=== PATIENT | male | born 1995 | race Hispanic/Latino ===

== ENCOUNTER 2018-03-17 18:58 | Inpatient (IN) | payer BC ==
[2018-03-17 18:59] VITALS: BMI 66.9
[2018-03-17] MEDS ORDERED: Morphine 4 mg/ml ISec IVP STA (20:13)
[2018-03-17] MEDS ORDERED: Sodium Chloride 0.9% 1,000 ML IV STA (20:13)
[2018-03-17] MEDS ORDERED: Iohexol 240 (50 ml) ONE (20:16)
[2018-03-17 20:37] LABS: BASO # 0.02 K/mm3 (0.0-2.0); BASO % 0.1 % (0.0-3.0); EOS # 0.5 (0.0-0.7); EOS % 3.1 % (1.5-5.0); GRAN # 9.52 (1.4-6.5); GRAN % 57.3 % (50.0-68.0); HEMOGLOBIN 14.6 g/dL (14.0-18.0); LYMPH # 5.3 (1.2-3.4); LYMPH % 31.7 % (22.0-35.0); MEAN CELL VOLUME 84.2 fl (80.0-105.0); MEAN CORPUSCULAR HEMOGLOBIN 28.5 pg (25.0-35.0); MEAN CORPUSCULAR HGB CONC 33.9 g/dl (31.0-37.0); MEAN PLATELET VOLUME 8.8 fl (7.0-11.0); MONO # 1.3 (0.1-0.6); MONO % 7.8 % (1.0-6.0); RBC 5.12 10^6/uL (3.5-6.1); RED CELL DISTRIBUTION WIDTH 12.7 % (11.5-14.5); WHITE BLOOD COUNT 16.6 10^3/ul (4.5-11.0)
--- NOTE | 2018-03-17 20:49 | ED PDOC ---
Arrival/HPI - General Chief Complaint: Male Genitourinary Time Seen by Provider: 03/17/18 19:50 Historian: Patient - History of Present Illness Narrative History of Present Illness (Text): 03/17/18 20:46 Navin Hammond is a 23 year old male who presents to the emergency department complaining of rectal pain for the past 6 weeks. Patient states that he visited an Urgent care center 1 week ago and was prescribed Miralax and has used everything he can over the counter including hydrocortisone creams to no relief. Patient comes to emergency department for swelling and pain to his rectal area. Patient has no other complaints at this time. PMD: Dr. Niels Groves Time/Duration: > month Symptom Onset: Gradual Symptom Course: Unchanged Activities at Onset: Light Context: Home Past Medical History - Provider Review Nursing Documentation Reviewed: Yes - Past Medical History Past Medical History: No Previous - Psychiatric Hx Depression: No Hx Emotional Abuse: No Hx Physical Abuse: No Hx Substance Use: No - Past Surgical History Past Surgical History: No Previous - Anesthesia Hx Anesthesia: No - Suicidal Assessment Feels Threatened In Home Enviroment: No Family/Social History - Physician Review Nursing Documentation Reviewed: Yes Family/Social History: No Known Family HX Smoking Status: Current Some Days Smoker Hx Alcohol Use: Yes Frequency of alcohol use: Socially Hx Substance Use: No Hx Substance Use Treatment: No Allergies/Home Meds Allergies/Adverse Reactions: Allergies peanut Allergy (Verified 03/17/18 20:07) RASH tree nut Allergy (Verified 03/17/18 20:07) RASH Review of Systems - Physician Review All systems were reviewed & negative as marked: Yes - Review of Systems Constitutional: absent: Fevers, Night Sweats Eyes: absent: Vision Changes ENT: absent: Hearing Changes Respiratory: absent: SOB, Cough Cardiovascular: absent: Chest Pain Gastrointestinal: absent: Abdominal Pain Genitourinary Male: Other (Rectal pain) Musculoskeletal: absent: Arthralgias Skin: absent: Rash, Pruritis Neurological: absent: Headache, Dizziness Endocrine: absent: Diaphoresis Hemo/Lymphatic: absent: Adenopathy Psychiatric: absent: Anxiety, Depression Physical Exam Vital Signs Reviewed: Yes Vital Signs Temp Pulse Resp BP Pulse Ox 03/17/18 23:16 98.2 F 69 18 115/52 L 99 03/17/18 20:00 98.3 F 86 18 120/58 L 100 Temperature: Afebrile Blood Pressure: Hypotensive Pulse: Regular Respiratory Rate: Normal Appearance: Positive for: Well-Appearing, Non-Toxic, Comfortable Pain Distress: None Mental Status: Positive for: Alert and Oriented X 3 - Systems Exam Head: Present: Atraumatic, Normocephalic Pupils: Present: PERRL Extroacular Muscles: Present: EOMI Conjunctiva: Present: Normal Mouth: Present: Moist Mucous Membranes Neck: Present: Normal Range of Motion Respiratory/Chest: Present: Clear to Auscultation, Good Air Exchange. No: Respiratory Distress, Accessory Muscle Use Cardiovascular: Present: Regular Rate and Rhythm, Normal S1, S2. No: Murmurs Abdomen: No: Tenderness, Distention, Peritoneal Signs Rectal: Present: Other (Perirectal abscess) Back: Present: Normal Inspection Upper Extremity: Present: Normal Inspection. No: Cyanosis, Edema Lower Extremity: Present: Normal Inspection. No: Edema Neurological: Present: GCS=15, CN II-XII Intact, Speech Normal Skin: Present: Warm, Dry, Normal Color. No: Rashes Psychiatric: Present: Alert, Oriented x 3, Normal Insight, Normal Concentration Medical Decision Making ED Course and Treatment: 03/17/18 20:51 Impression: 22 year old male complaining of rectal pain for 6 weeks. Plan: -- Abdomen and Pelvis CT with contrast -- Labs -- Zofran, Morphine, and IV Fluids -- Reassess and disposition Progress Notes: 03/17/18 23:03 Case discussed with Excellence Consultant who is aware and agrees with the plan. Consult under Dr. Cash. EXAM: CT Abdomen and Pelvis With Intravenous Contrast Dictated and Authenticated by: Andrew Ruelas MD 03/17/2018 11:14 PM IMPRESSION: 1. Mild mucosal thickening in the sigmoid colon and rectum concerning for a distal colitis. 2. Multiple small perirectal lymph nodes which may be reactive nodes. No perirectal abscess is identified. 03/17/18 23:[address] Chen who is aware and agrees with the plan. Patient will be admitted under Dr. Aguero's service. - Lab Interpretations Lab Results: 03/17/18 20:19 03/17/18 20:19 Lab Results 03/17/18 20:19: Sodium 141, Potassium 4.0, Chloride 100, Carbon Dioxide 29, Anion Gap 16, BUN 18, Creatinine 1.1, Est GFR ( Amer) > 60, Est GFR (Non- Af Amer) > 60, Random Glucose 86, Calcium 9.6, Total Bilirubin 0.3, AST 29, ALT 25, Alkaline Phosphatase 62, Total Protein 7.7, Albumin 4.5, Globulin 3.3, Albumin/Globulin Ratio 1.4 03/17/18 20:19: PT 11.7, INR 1.03 03/17/18 20:19: WBC 16.6 H, RBC 5.12, Hgb 14.6, Hct 43.1, MCV 84.2, MCH 28.5, MCHC 33.9, RDW 12.7, Plt Count 383, MPV 8.8, Gran % 57.3, Lymph % (Auto) 31.7, [place] % (Auto) 7.8 H, Eos % (Auto) 3.1, Baso % (Auto) 0.1, Gran # 9.52 H, Lymph # (Auto) 5.3 H, [place] # (Auto) 1.3 H, Eos # (Auto) 0.5, Baso # (Auto) 0.02 I have reviewed the lab results: Yes - RAD Interpretation Radiology Orders: 03/17/18 20:13 ABD PELVIS PO & IV CONTRAST [CT] Stat - Medication Orders Current Medication Orders: Discontinued Medications Acyclovir (Zovirax) 400 mg PO TID KATHRINE PRN Reason: Protocol Stop: 04/03/18 18:01 Doxycycline Hyclate (Doryx) 100 mg PO Q12 KATHRINE PRN Reason: Protocol Stop: 03/27/18 22:01 Last Admin: 03/20/18 10:46 Dose: 100 mg Sodium Chloride (Sodium Chloride 0.9%) 1,000 mls @ 999 mls/hr IV .Q1H1M STA Stop: 03/17/18 21:13 Last Admin: 03/17/18 20:49 Dose: 999 mls/hr eMAR Start Stop Document 03/17/18 20:49 SS (Rec: 03/17/18 20:49 SS [facility] [id number]) Intravenous Solution Start Date 03/17/18 Start Time 20:49 End Date 03/17/18 End time 21:49 Total Infusion Time 60 Metronidazole (Flagyl) 500 mg in 100 mls @ 100 mls/hr IVPB STAT STA PRN Reason: Protocol Stop: 03/18/18 00:35 Last Admin: 03/18/18 00:13 Dose: 100 mls/hr eMAR Start Stop Document 03/18/18 00:13 OCS (Rec: 03/18/18 00:14 OCS [id number]) Intravenous Solution Start Date 03/18/18 Start Time 00:14 End Date 03/18/18 End time 01:14 Total Infusion Time 60 Levofloxacin/Dextrose (Levaquin 750mg) 750 mg in 150 mls @ 100 mls/hr IVPB STAT STA PRN Reason: Protocol Stop: 03/18/18 01:05 Last Admin: 03/18/18 07:50 Dose: Sodium Chloride (Sodium Chloride 0.9%) 1,000 mls @ 125 mls/hr IV .Q8H KATHRINE Last Admin: 03/18/18 14:37 Dose: 125 mls/hr eMAR Start Stop Document 03/18/18 14:37 LUISA (Rec: 03/18/18 14:38 LUISA [id number]) Intravenous Solution Start Date 03/18/18 Start Time 14:37 End Date 03/18/18 End time 22:37 Total Infusion Time 480 Piperacillin Sod/Tazobactam Sod (Zosyn 3.375 In Ns 100ml) 100 mls @ 200 mls/hr IVPB Q6 KATHRINE PRN Reason: Protocol Stop: 03/18/18 12:29 Last Admin: 03/18/18 12:09 Dose: 200 mls/hr eMAR Start Stop Document 03/18/18 12:09 LUISA (Rec: 03/18/18 12:09 LUISA [id number]) Intravenous Solution Start Date 03/18/18 Start Time 12:09 End Date 03/18/18 End time 12:39 Total Infusion Time 30 Ceftriaxone Sodium (Rocephin 1 Gram Ivpb) 1 gm in 100 mls @ 100 mls/hr IVPB DAILY KATHRINE PRN Reason: Protocol Stop: 03/27/18 12:34 Last Admin: 03/20/18 10:46 Dose: 100 mls/hr eMAR Start Stop Document 03/20/18 10:46 MAHAMED (Rec: 03/20/18 10:47 MAHAMED [id number]) Intravenous Solution Start Date 03/20/18 Start Time 10:47 Acyclovir 500 mg/ Sodium (Chloride) 100 mls @ 100 mls/hr IV Q8 KATHRINE PRN Reason: Protocol Stop: 03/28/18 14:01 Last Admin: 03/20/18 15:20 Dose: 100 mls/hr eMAR Start Stop Document 03/20/18 15:20 MAHAMED (Rec: 03/20/18 15:21 MAHAMED [facility] [id number]) Intravenous Solution Start Date 03/20/18 Start Time 15:21 Sodium Chloride (Sodium Chloride 0.9%) 1,000 mls @ 75 mls/hr IV .[id number] KATHRINE Stop: 03/19/18 11:01 Magnesium Citrate (Citrate Of Mag) 300 ml PO ONCE ONE Stop: 03/18/18 18:01 Last Admin: 03/18/18 18:11 Dose: 300 ml Morphine Sulfate (Morphine) 4 mg IVP STAT STA Stop: 03/17/18 20:14 Last Admin: 03/17/18 20:48 Dose: 4 mg [facility] Pain Assessment Document 03/17/18 20:48 SS (Rec: 03/17/18 20:49 [place] [facility] [id number] Pain Reassessment Is this a pain reassessment? Yes Sleep Is patient sleeping during reassessment? No Presence of Pain Presence of Pain Yes Description Description Constant Intensity of Pain at present 8 IVP Administration Document 03/17/18 20:48 SS (Rec: 03/17/18 20:49 SS [facility] [id number]) Charges for Administration # of IVP Administrations 1 Re-Assess: [facility] Pain Assessment Document 03/18/18 01:30 KP (Rec: 03/18/18 07:51 KP [id number]) Pain Reassessment Is this a pain reassessment? Yes Sleep Is patient sleeping during reassessment? No Presence of Pain Presence of Pain No Ondansetron HCl (Zofran Inj) 4 mg IVP STAT STA Stop: 03/17/18 20:14 Last Admin: 03/17/18 20:49 Dose: 4 mg IVP Administration Document 03/17/18 20:49 SS (Rec: 03/17/18 20:49 SS [facility] [id number]) Charges for Administration # of IVP Administrations 1 Pantoprazole Sodium (Protonix Ec Tab) 40 mg PO 0600 KATHRINE Last Admin: 03/20/18 10:46 Dose: 40 mg - Scribe Statement The provider has reviewed the documentation as recorded by the Anna Encarnacion Provider Scribe Attestation: All medical record entries made by the Mcibe were at my direction and personally dictated by me. I have reviewed the chart and agree that the record accurately reflects my personal performance of the history, physical exam, medical decision making, and the department course for this patient. I have also personally directed, reviewed, and agree with the discharge instructions and disposition. Disposition/Present on Arrival - Present on Arrival Any Indicators Present on Arrival: No History of DVT/PE: No History of Uncontrolled Diabetes: No Urinary Catheter: No History of Decub. Ulcer: No History Surgical Site Infection Following: None - Disposition Have Diagnosis and Disposition been Completed?: Yes Diagnosis: Colitis, Proctalgia Disposition: HOSPITALIZED Disposition Time: 02:00 Patient Plan: Admission Condition: GOOD
[2018-03-17 20:50] LABS: ALB/GLOB RATIO 1.4 (1.1-1.8); ALBUMIN 4.5 g/dL (3.0-4.8); ALT/SGPT 25 U/L (7-56); AST/SGOT 29 U/L (17-59); BLOOD UREA NITROGEN 18 mg/dL (7-21); CALCIUM 9.6 mg/dL (8.4-10.5); GFR AFRICAN-AMERICAN > 60; GFR NON-AFRICAN AMERICAN > 60
[2018-03-17 20:59] LABS: INR 1.03 (0.93-1.08); PROTHROMBIN TIME 11.7 SECONDS (9.4-12.5)
[2018-03-17] MEDS ORDERED: Iohexol 350 MG/100 ML VIAL ONE (21:37)
[2018-03-17] MEDS ORDERED: levoFLOXacin 750 mg in D5W 750 MG/150 ML BAG IVPB STA (23:36)
[2018-03-17] MEDS ORDERED: metroNIDAZOLE IV 500 mg/100 ml 500 MG/100 ML BAG IVPB STA (23:36)
--- NOTE | 2018-03-18 00:18 | CP.PCM.CON ---
History of Present Illness - History of Present Illness History of Present Illness: Surgery: Dr. Cash CC: Rectal pain HPI: 22M w. pmh of hemorrhoids comes in w. rectal pain for over a month. He states that the pain he has now is a more severe form of the hemorrhoid pain he has experienced in the past. He states that the pain has been accompanied by a significant amount of rectal bleeding and that he has noticed mucous in his stools. He states that the mucous in the stool is new for him. He denies F/C. No weight loss. He symptoms are unrelated to diet. He states that he went to urgent care last week and was given miralax and hydrocortisone cream for hemorrhoids, but this made symptoms worse. In ED pt was found to have elevated wbc and CT showed distal colitis w. enlarged taz-rectal lymph nodes, no abscess. PMH: hemorrhoids PSH: none Meds: MAR reviewed NKDA Social: ETOH/tobacco, no drugs Fhx: No hx of inflammatory bowel disease Review of Systems - Review of Systems All systems: reviewed and no additional remarkable complaints except (HPI) Past Patient History - Past Social History Smoking Status: Current Some Days Smoker - PSYCHIATRIC Hx Depression: No Hx Emotional Abuse: No Hx Physical Abuse: No Hx Substance Use: No - SURGICAL HISTORY Hx Surgeries: No - ANESTHESIA Hx Anesthesia: No Meds Allergies/Adverse Reactions: Allergies Allergy/AdvReac Type Severity Reaction Status Date / Time peanut Allergy RASH Verified 03/17/18 20:07 tree nut Allergy RASH Verified 03/17/18 20:07 - Medications Medications: Current Medications Metronidazole (Flagyl) 500 mg in 100 mls @ 100 mls/hr IVPB STAT STA PRN Reason: Protocol Stop: 03/18/18 00:35 Levofloxacin/Dextrose (Levaquin 750mg) 750 mg in 150 mls @ 100 mls/hr IVPB STAT STA PRN Reason: Protocol Stop: 03/18/18 01:05 Physical Exam - Constitutional Appears: Non-toxic, No Acute Distress - Head Exam Head Exam: ATRAUMATIC, NORMOCEPHALIC - Eye Exam Eye Exam: EOMI - ENT Exam ENT Exam: Mucous Membranes Moist - Respiratory Exam Respiratory Exam: NORMAL BREATHING PATTERN. absent: Accessory Muscle Use, Respiratory Distress - GI/Abdominal Exam GI & Abdominal Exam: Soft. absent: Distended, Firm, Guarding, Rigid, Tenderness - Rectal Exam Additional comments: punctate taz-anal 6 o'clock, no drainage noted - Extremities Exam Extremities exam: Negative for: calf tenderness, pedal edema - Neurological Exam Neurological exam: Alert, Oriented x3 - Psychiatric Exam Psychiatric exam: Normal Affect, Normal Mood Results - Vital Signs Recent Vital Signs: Last Vital Signs Temp 98.2 F 03/17/18 23:16 Pulse 69 03/17/18 23:16 Resp 18 03/17/18 23:16 BP 115/52 L 03/17/18 23:16 Pulse Ox 99 03/17/18 23:16 - Labs Result Diagrams: 03/17/18 20:19 03/17/18 20:19 Labs: Laboratory Results - last 24 hr 03/17/18 03/17/18 03/17/18 20:19 20:19 20:19 WBC 16.6 H RBC 5.12 Hgb 14.6 Hct 43.1 MCV 84.2 MCH 28.5 MCHC 33.9 RDW 12.7 Plt Count 383 MPV 8.8 Gran % 57.3 Lymph % (Auto) 31.7 [place] % (Auto) 7.8 H Eos % (Auto) 3.1 Baso % (Auto) 0.1 Gran # 9.52 H Lymph # (Auto) 5.3 H [place] # (Auto) 1.3 H Eos # (Auto) 0.5 Baso # (Auto) 0.02 PT 11.7 INR 1.03 Sodium 141 Potassium 4.0 Chloride 100 Carbon Dioxide 29 Anion Gap 16 BUN 18 Creatinine 1.1 Est GFR ( Amer) > 60 Est GFR (Non-Af Amer) > 60 Random Glucose 86 Calcium 9.6 Total Bilirubin 0.3 AST 29 ALT 25 Alkaline Phosphatase 62 Total Protein 7.7 Albumin 4.5 Globulin 3.3 Albumin/Globulin Ratio 1.4 - Imaging and Cardiology CT scan - abdomen Status: Image reviewed by me, Report reviewed by me Assessment & Plan - Assessment and Plan (Free Text) Assessment: 22M w. rectal pain, fistula vs colitis -sitz bath -npo -abx -pain meds -recommend GI consult -d/w attending Alfonso PGY3
[2018-03-18] MEDS: Sodium Chloride 0.9% 1,000 ML IV SCH ×2 (01:30→14:37)
[2018-03-18] MEDS: Piperacillin/Tazobact 3.375 gm 100 ML IVPB SCH ×2 (05:13→12:09)
[2018-03-18 08:12] LABS: BASO # 0.03 K/mm3 (0.0-2.0); BASO % 0.2 % (0.0-3.0); EOS # 0.5 (0.0-0.7); EOS % 3.2 % (1.5-5.0); GRAN # 9.36 (1.4-6.5); GRAN % 62.2 % (50.0-68.0); LYMPH # 3.9 (1.2-3.4); MEAN CELL VOLUME 83.3 fl (80.0-105.0); MEAN CORPUSCULAR HEMOGLOBIN 28.6 pg (25.0-35.0); MEAN CORPUSCULAR HGB CONC 34.3 g/dl (31.0-37.0); MEAN PLATELET VOLUME 8.7 fl (7.0-11.0); MONO # 1.3 (0.1-0.6); MONO % 8.4 % (1.0-6.0); RBC 4.9 10^6/uL (3.5-6.1); RED CELL DISTRIBUTION WIDTH 12.9 % (11.5-14.5)
[2018-03-18 08:26] LABS: ALB/GLOB RATIO 1.4 (1.1-1.8); ALT/SGPT 31 U/L (7-56); AST/SGOT 24 U/L (17-59); BLOOD UREA NITROGEN 10 mg/dL (7-21); CALCIUM 9.1 mg/dL (8.4-10.5); GFR AFRICAN-AMERICAN > 60; GFR NON-AFRICAN AMERICAN > 60
--- NOTE | 2018-03-18 10:36 | CT ---
PROCEDURE: CT scan of the abdomen and pelvis dated 03/17/2018. HISTORY: Perirectal abscess. COMPARISON: No prior study available for comparison TECHNIQUE: Contiguous axial images of the abdomen and pelvis performed of following oral and intravenous injection of approximately 100 cc Omnipaque 350 contrast material. Additional 2 dimensional sagittal and coronal reformats generated. Radiation dose: Total exam DLP = This CT exam was performed using one or more of the following dose reduction techniques: Automated exposure control, adjustment of the mA and/or kV according to patient size, and/or use of iterative reconstruction technique. FINDINGS: LOWER THORAX: Unremarkable. Lung bases clear. No infiltrate effusion or basilar pneumothorax. Tiny hiatal hernia. Heart size within range of normal. No significant pericardial effusion. LIVER: Liver is upper limits of normal measuring nearly 19 cm in CC dimension. . No obvious hepatic masses or collections. GALLBLADDER AND BILE DUCTS: Unremarkable. Gallbladder is physiologically distended. No evidence of intraluminal gallbladder calculi. A edge PANCREAS: Unremarkable. No mass. No ductal dilatation. SPLEEN: Spleen is mildly enlarged measuring approximately 13.4 cm in AP dimension. ADRENALS: There are no adrenal lesions. KIDNEYS AND URETERS: The the kidneys demonstrate symmetric nephrograms. No evidence of nephrolithiasis or hydronephrosis. Unremarkable. No stone or hydronephrosis. BLADDER: Grossly unremarkable without evidence of intraluminal urinary bladder calculi. . REPRODUCTIVE: Unremarkable. APPENDIX: Normal-appearing appendix best seen on axial image number [id number]. BOWEL: Evaluation of the bowel is somewhat limited due to incomplete opacification. Stomach is distended with oral contrast material some food debris and air. Visualized loops of small bowel exhibit normal contour and caliber. No evidence of acute mechanical small bowel obstruction. Stool and air are seen throughout the large bowel. There is mild wall thickening of a short segment of the sigmoid colon and rectum suggesting a localized colitis. There is asymmetric wall thickening of the rectum left-side larger and somewhat more bulbous in appearance than right . There is a vague elliptical shaped area of somewhat low-attenuation adjacent to or within the left aspect rectal wall in this location that could represent a small left-sided perirectal abscess that measures approximately 11 mm x 6 mm and best seen on axial image number 165. . In addition, there also appears to be scattered perirectal lymph nodes likely reactive. PERITONEUM: Unremarkable. No fluid collection. No free air. LYMPH NODES: Unremarkable. No enlarged lymph nodes. VASCULATURE: Unremarkable. No evidence of abdominal aortic aneurysm. BONES: No fracture or destructive lesion. OTHER FINDINGS: No evidence of perirectal abscess is identified IMPRESSION: Findings consistent with a localized colitis involving the sigmoid colon and rectum. There is also asymmetric wall thickening of the rectum left-side of which is larger and more somewhat bulbous than the right side with a vague area of low attenuation within or along the left-sided rectal wall that could represent a tiny perirectal abscess (see axial image number 165) . These findings were discussed with emergency room NELLI Fallon at approximately at 10:30 a.m. with written down and read back verification.
--- NOTE | 2018-03-18 10:48 | CP.PCM.HP ---
Addendum entered and electronically signed by Ke Ang DO 17:15: Please disregard this note and see H/P from previous day Original Note: <Ke Ang - Last Filed: 03/18/18 10:34> History of Present Illness - History of Present Illness History of Present Illness: Medicine H&P: Dr. Aguero Chief Complaint: Rectal Pain HPI: 22 year old male with past medical history of hemorrhoids presents with one month duration of rectal pain that is getting incrementally worse. Patient states that he came to the emergency room when the pain was unbearable; he states that the pain is similar to the pain he gets from hemorrhoids, but more severe. Patient reports blood and mucous in his stool, the blood is not new but the mucous is. Patient went to urgent care last week where he was given miralax and hydrocortisone cream, but his symptoms have since gotten worse. Patient denies fevers and chills and denies any recent illness. Patient does not associate the bloody stools with any food changes. Review of Systems: 12 point ROS obtained and negative except as per HPI Surgical History: Patient denies Medical History: Patient denies Allergies: Peanut, Tree nut Social History: Smokes cigarettes, drinks alcohol; denies illicits Home Meds: Patient denies prescription medications Family: Patient denies PMD: Dr. Andrew Groves Present on Admission - Present on Admission Any Indicators Present on Admission: No Past Patient History - Past Social History Smoking Status: Light Smoker < 10 Cigarettes Daily - CARDIAC Hx Cardiac Disorders: No - PULMONARY Hx Respiratory Disorders: Yes Other/Comment: Smoker - NEUROLOGICAL Hx Neurological Disorder: No - HEENT Hx HEENT Problems: No - RENAL Hx Chronic Kidney Disease: No - ENDOCRINE/METABOLIC Hx Endocrine Disorders: No - HEMATOLOGICAL/ONCOLOGICAL Hx Blood Disorders: No - INTEGUMENTARY Hx Dermatological Problems: No - MUSCULOSKELETAL/RHEUMATOLOGICAL Hx Musculoskeletal Disorders: No Hx Falls: No - GASTROINTESTINAL Hx Gastrointestinal Disorders: No - GENITOURINARY/GYNECOLOGICAL Hx Genitourinary Disorders: No - PSYCHIATRIC Hx Depression: No Hx Emotional Abuse: No Hx Physical Abuse: No Hx Substance Use: No - SURGICAL HISTORY Hx Surgeries: No - ANESTHESIA Hx Anesthesia: No Meds Allergies/Adverse Reactions: Allergies Allergy/AdvReac Type Severity Reaction Status Date / Time peanut Allergy RASH Verified 03/17/18 20:07 tree nut Allergy RASH Verified 03/17/18 20:07 Physical Exam - Constitutional Appears: Well - Head Exam Head Exam: ATRAUMATIC, NORMAL INSPECTION, NORMOCEPHALIC - Eye Exam Eye Exam: EOMI, Normal appearance, PERRL Pupil Exam: NORMAL ACCOMODATION, PERRL - ENT Exam ENT Exam: Mucous Membranes Moist, Normal Exam - Neck Exam Neck exam: Positive for: Normal Inspection - Respiratory Exam Respiratory Exam: Clear to Auscultation Bilateral, NORMAL BREATHING PATTERN - Cardiovascular Exam Cardiovascular Exam: REGULAR RHYTHM - GI/Abdominal Exam GI & Abdominal Exam: Normal Bowel Sounds, Soft. absent: Tenderness - Rectal Exam Rectal Exam: Hemorrhoids, NORMAL INSPECTION - Extremities Exam Extremities exam: Positive for: normal inspection - Back Exam Back exam: NORMAL INSPECTION - Neurological Exam Neurological exam: Alert, CN II-XII Intact, Normal Gait, Oriented x3, Reflexes Normal - Psychiatric Exam Psychiatric exam: Normal Affect, Normal Mood - Skin Skin Exam: Dry, Intact, Normal Color, Warm Results - Vital Signs Recent Vital Signs: Last Vital Signs Temp 98.3 F 03/18/18 08:04 Pulse 70 03/18/18 08:04 Resp 20 03/18/18 08:04 BP 98/57 L 03/18/18 08:04 Pulse Ox 98 03/18/18 08:04 - Labs Result Diagrams: 03/18/18 07:00 03/18/18 07:00 Labs: Laboratory Results - last 24 hr 03/18/18 03/18/18 03/18/18 07:00 07:00 07:00 WBC 15.0 H RBC 4.90 Hgb 14.0 Hct 40.8 L MCV 83.3 MCH 28.6 MCHC 34.3 RDW 12.9 Plt Count 341 MPV 8.7 Gran % 62.2 Lymph % (Auto) 26.0 [place] % (Auto) 8.4 H Eos % (Auto) 3.2 Baso % (Auto) 0.2 Gran # 9.36 H Lymph # (Auto) 3.9 H [place] # (Auto) 1.3 H Eos # (Auto) 0.5 Baso # (Auto) 0.03 Sodium 137 Potassium 3.9 Chloride 101 Carbon Dioxide 29 Anion Gap 11 BUN 10 Creatinine 1.0 Est GFR ( Amer) > 60 Est GFR (Non-Af Amer) > 60 Random Glucose 96 Lactic Acid 0.7 Calcium 9.1 Phosphorus 3.6 Magnesium 2.0 Total Bilirubin 0.8 AST 24 ALT 31 Alkaline Phosphatase 62 Total Protein 6.9 Albumin 4.0 Globulin 2.9 Albumin/Globulin Ratio 1.4 Assessment & Plan - Assessment and Plan (Free Text) Assessment: 22 year old male with past medical history of hemorrhoids is presenting with rectal pain and hemorrhoids. CT abdomen pelvis shows distal colitis. Patient had an elevated white count on admission but shows no other signs of infection. Lactic acid is negative and procalcitonin negative. Patient denies any recent fevers and chills or any recent illness. One dose of Flagyl and Levaquin each given in ED Plan: Hematochezia with Rectal Pain, likely 2/2 external hemorrhoids - Surgery on consult: Dr. Carballo Keep patient NPO, Sitz bath, Pain medication as needed, recommend GI consult - GI on consult: Dr. Looney Appreciate recommendations - Infectious disease on consult: Dr. Riddle Appreciate recommendations - Continue Zosyn - NaCl at 125 mls/hr - Stool culture, blood cultures pending Leukocytosis, likely 2/2 Steroid Use Outpatient - Monitor for now - ID is on consult, patient is on Zosyn for now History of Hemorrhoids - As above Tobacco Abuse - Cessation advised GI/DVT Prophylaxis - Protonix/SCD <Jose Miguel Aguero - Last Filed: 03/19/18 21:32> Results - Vital Signs Recent Vital Signs: Last Vital Signs Temp 98.5 F 03/19/18 14:00 Pulse 69 03/19/18 14:00 Resp 18 03/19/18 14:00 BP 122/63 03/19/18 14:00 Pulse Ox 100 03/19/18 14:00 - Labs Result Diagrams: 03/19/18 06:00 03/19/18 07:00 Labs: Laboratory Results - last 24 hr 03/18/18 03/18/18 03/18/18 08:00 08:00 11:00 WBC RBC Hgb Hct MCV MCH MCHC RDW Plt Count MPV Gran % Lymph % (Auto) [place] % (Auto) Eos % (Auto) Baso % (Auto) Gran # Lymph # (Auto) [place] # (Auto) Eos # (Auto) Baso # (Auto) Sodium Potassium Chloride Carbon Dioxide Anion Gap BUN Creatinine Est GFR ( Amer) Est GFR (Non-Af Amer) Random Glucose Calcium Phosphorus Magnesium Total Bilirubin AST ALT Alkaline Phosphatase Total Protein Albumin Globulin Albumin/Globulin Ratio Urine Color Urine Appearance Urine pH Ur Specific [place] Urine Protein Urine Glucose (UA) Urine Ketones Urine Blood Urine Nitrate Urine Bilirubin Urine Urobilinogen Ur Leukocyte Esterase Urine Opiates Screen Urine Methadone Screen Ur Barbiturates Screen Ur Phencyclidine Scrn Ur Amphetamines Screen U Benzodiazepines Scrn U Oth Cocaine Metabols U Cannabinoids Screen RPR T.pallidum Ab (FTA-ABS) Nonreactive HIV-1 RNA Qnt (RT-PCR) <1.30 not detected HIV 1&2 Ag/Ab, 4th Gen Nonreactive 03/19/18 03/19/18 03/19/18 06:00 07:00 07:00 WBC 12.1 H RBC 4.87 Hgb 13.9 L Hct 40.6 L MCV 83.4 MCH 28.5 MCHC 34.2 RDW 12.6 Plt Count 355 MPV 8.9 Gran % 64.2 Lymph % (Auto) 23.5 [place] % (Auto) 9.4 H Eos % (Auto) 2.7 Baso % (Auto) 0.2 Gran # 7.75 H Lymph # (Auto) 2.8 [place] # (Auto) 1.1 H Eos # (Auto) 0.3 Baso # (Auto) 0.02 Sodium 137 Potassium 3.9 Chloride 103 Carbon Dioxide 24 Anion Gap 14 BUN 10 Creatinine 0.9 Est GFR ( Amer) > 60 Est GFR (Non-Af Amer) > 60 Random Glucose 72 Calcium 8.8 Phosphorus 3.2 Magnesium 2.0 Total Bilirubin 0.5 AST 27 ALT 27 Alkaline Phosphatase 71 Total Protein 6.9 Albumin 4.0 Globulin 2.9 Albumin/Globulin Ratio 1.4 Urine Color Urine Appearance Urine pH Ur Specific [place] Urine Protein Urine Glucose (UA) Urine Ketones Urine Blood Urine Nitrate Urine Bilirubin Urine Urobilinogen Ur Leukocyte Esterase Urine Opiates Screen Urine Methadone Screen Ur Barbiturates Screen Ur Phencyclidine Scrn Ur Amphetamines Screen U Benzodiazepines Scrn U Oth Cocaine Metabols U Cannabinoids Screen RPR Nonreactive T.pallidum Ab (FTA-ABS) HIV-1 RNA Qnt (RT-PCR) HIV 1&2 Ag/Ab, 4th Gen 03/19/18 03/19/18 10:50 10:50 WBC RBC Hgb Hct MCV MCH MCHC RDW Plt Count MPV Gran % Lymph % (Auto) [place] % (Auto) Eos % (Auto) Baso % (Auto) Gran # Lymph # (Auto) [place] # (Auto) Eos # (Auto) Baso # (Auto) Sodium Potassium Chloride Carbon Dioxide Anion Gap BUN Creatinine Est GFR ( Amer) Est GFR (Non-Af Amer) Random Glucose Calcium Phosphorus Magnesium Total Bilirubin AST ALT Alkaline Phosphatase Total Protein Albumin Globulin Albumin/Globulin Ratio Urine Color Yellow Urine Appearance Clear Urine pH 6.0 Ur Specific [place] >= 1.030 Urine Protein Negative Urine Glucose (UA) Negative Urine Ketones >=80 Urine Blood Negative Urine Nitrate Negative Urine Bilirubin Small H Urine Urobilinogen 0.2 Ur Leukocyte Esterase Negative Urine Opiates Screen Negative Urine Methadone Screen Negative Ur Barbiturates Screen Negative Ur Phencyclidine Scrn Negative Ur Amphetamines Screen Positive H U Benzodiazepines Scrn Negative U Oth Cocaine Metabols Positive H U Cannabinoids Screen Positive H RPR T.pallidum Ab (FTA-ABS) HIV-1 RNA Qnt (RT-PCR) HIV 1&2 Ag/Ab, 4th Gen Assessment & Plan - Assessment and Plan (Free Text) Assessment: ASSESMENT & PLAN: 1. Abdominal pain with intermittent rectal bleeding for last 1 month. 2. Small hiatal hernia. 3. Physiologically distended gallbladder. 4. Mild splenomegaly. 5. Mild rectal and sigmoid colon wall thickening suggestive of localized colitis with asymmetrical wall thickening of the rectum, left more than the right, with possible small left-sided perirectal abscess adjacent to or within the left aspect of the rectal wall. 6. Perirectal lymphadenopathy. 7. Localized colitis of the sigmoid colon and rectum with asymmetric wall thickening of the left side of the rectum with suggestion of small left perirectal abscess. 8. Transient hypotension. 9. Leukocytosis. 10. Questionable rectal bleeding with fecal occult blood positive. 11. History of hemorrhoid. 12. Questionable rectal bleeding. 13. Lower abdominal pain with rectal pain. 14. Nicotine dependence. 15. Proctitis and colitis. 16. Active homosexuality with receptive anorectal sex.
--- NOTE | 2018-03-18 12:35 | CP.PCM.CON ---
History of Present Illness - History of Present Illness History of Present Illness: Surgery: Dr. Carballo CC: Rectal pain HPI: 22M w. pmh of hemorrhoids comes in w. rectal pain for over a month. He states that the pain he has now is a more severe form of the hemorrhoid pain he has experienced in the past. He states that the pain has been accompanied by a significant amount of rectal bleeding and that he has noticed mucous in his stools. He states that the mucous in the stool is new for him. He denies F/C. No weight loss. He symptoms are unrelated to diet. He states that he went to urgent care last week and was given miralax and hydrocortisone cream for hemorrhoids, but this made symptoms worse. In ED pt was found to have elevated wbc and CT showed distal colitis w. enlarged taz-rectal lymph nodes, no abscess. PMH: hemorrhoids PSH: none Meds: MAR reviewed NKDA Social: ETOH/tobacco, no drugs Fhx: No hx of inflammatory bowel disease Review of Systems - Review of Systems All systems: reviewed and no additional remarkable complaints except Review of Systems: (HPI) Past Patient History - Past Social History Smoking Status: Light Smoker < 10 Cigarettes Daily - CARDIAC Hx Cardiac Disorders: No - PULMONARY Hx Respiratory Disorders: Yes Other/Comment: Smoker - NEUROLOGICAL Hx Neurological Disorder: No - HEENT Hx HEENT Problems: No - RENAL Hx Chronic Kidney Disease: No - ENDOCRINE/METABOLIC Hx Endocrine Disorders: No - HEMATOLOGICAL/ONCOLOGICAL Hx Blood Disorders: No - INTEGUMENTARY Hx Dermatological Problems: No - MUSCULOSKELETAL/RHEUMATOLOGICAL Hx Musculoskeletal Disorders: No Hx Falls: No - GASTROINTESTINAL Hx Gastrointestinal Disorders: No - GENITOURINARY/GYNECOLOGICAL Hx Genitourinary Disorders: No - PSYCHIATRIC Hx Depression: No Hx Emotional Abuse: No Hx Physical Abuse: No Hx Substance Use: No - SURGICAL HISTORY Hx Surgeries: No - ANESTHESIA Hx Anesthesia: No Meds Allergies/Adverse Reactions: Allergies Allergy/AdvReac Type Severity Reaction Status Date / Time peanut Allergy RASH Verified 03/17/18 20:07 tree nut Allergy RASH Verified 03/17/18 20:07 - Medications Medications: Current Medications Doxycycline Hyclate (Doryx) 100 mg PO Q12 [facility] PRN Reason: Protocol Stop: 03/27/18 22:01 Sodium Chloride (Sodium Chloride 0.9%) 1,000 mls @ 125 mls/hr IV .Q8H [facility] Last Admin: 03/18/18 01:30 Dose: 125 mls/hr Ceftriaxone Sodium (Rocephin 1 Gram Ivpb) 1 gm in 100 mls @ 100 mls/hr IVPB DAILY [facility] PRN Reason: Protocol Stop: 03/27/18 12:34 Acyclovir 500 mg/ Sodium (Chloride) 100 mls @ 100 mls/hr IV Q8 [facility] PRN Reason: Protocol Stop: 03/28/18 14:01 Pantoprazole Sodium (Protonix Ec Tab) 40 mg PO 0600 [facility] Results - Vital Signs Recent Vital Signs: Last Vital Signs Temp 98.3 F 03/18/18 08:04 Pulse 70 03/18/18 08:04 Resp 20 03/18/18 08:04 BP 98/57 L 03/18/18 08:04 Pulse Ox 98 03/18/18 08:04 - Labs Result Diagrams: 03/18/18 07:00 03/18/18 07:00 Labs: Laboratory Results - last 24 hr 03/18/18 03/18/18 03/18/18 07:00 07:00 07:00 WBC 15.0 H RBC 4.90 Hgb 14.0 Hct 40.8 L MCV 83.3 MCH 28.6 MCHC 34.3 RDW 12.9 Plt Count 341 MPV 8.7 Gran % 62.2 Lymph % (Auto) 26.0 [place] % (Auto) 8.4 H Eos % (Auto) 3.2 Baso % (Auto) 0.2 Gran # 9.36 H Lymph # (Auto) 3.9 H [place] # (Auto) 1.3 H Eos # (Auto) 0.5 Baso # (Auto) 0.03 Sodium 137 Potassium 3.9 Chloride 101 Carbon Dioxide 29 Anion Gap 11 BUN 10 Creatinine 1.0 Est GFR ( Amer) > 60 Est GFR (Non-Af Amer) > 60 Random Glucose 96 Lactic Acid 0.7 Calcium 9.1 Phosphorus 3.6 Magnesium 2.0 Total Bilirubin 0.8 AST 24 ALT 31 Alkaline Phosphatase 62 Total Protein 6.9 Albumin 4.0 Globulin 2.9 Albumin/Globulin Ratio 1.4 Assessment & Plan - Assessment and Plan (Free Text) Assessment: 22M w. rectal pain, fistula vs colitis vs. rectal abscess Plan: -sitz bath -npo -abx -pain meds -recommend GI consult -d/w attending
--- NOTE | 2018-03-18 13:51 | CON ---
DATE: 03/18/2018 LOCATION: The patient was seen in [facility], bed 3. CHIEF COMPLAINT: Rectal pain times several days. HISTORY OF PRESENT ILLNESS: This is a 22-year-old male who is complaining of rectal pain. The patient was seen in the emergency room by Dr. Jefferson Bosch and the patient had been complaining of rectal pain and is complaining of tenesmus and he was seen in urgent care 1 week ago, was given medications including creams and without any improvement. The patient states that he feels like he need to go to the bathroom, but goes to the bathroom and he does not have control of his stools and it is painful and he had low-grade fevers and occasional chills. No chest pain. No shortness of breath. No cough. There is diarrhea. PAST MEDICAL HISTORY: Significant for hemorrhoids. The patient says no surgical history. SEXUAL HISTORY: Significant for homosexuality. He had unprotected sex in [place]. He had rectal sex. SOCIAL HISTORY: He does use alcohol and he does smoke. MEDICATIONS: He is on no regular medications at home. He is not an intravenous drug abuser. He has been tested for HIV in the past. PHYSICAL EXAMINATION: GENERAL: He is in the bed. VITAL SIGNS: Temperature of 98, blood pressure is 120/58, respiratory rate of 18, heart rate of 86. HEENT: Examination of HEENT is unremarkable. NECK: Supple. LUNGS: Have decreased breath sounds. HEART: Normal S1 and S2. ABDOMEN: Soft, nontender. GENITOURINARY: Examination of his testicles and penis is all within normal. There is no lymphadenopathy. RECTUM: There is an ulcer. No erythema or discharge. LABORATORY DATA: Laboratory examination reveals a white count of 15,600 and hemoglobin of 14, platelets of 383. The patient has 57% granulocytosis, 31% lymphocytosis. Coagulation is noted. Chemistries reveals a BUN of 18, creatinine of 1.1. Microbiology is pending. CAT scan of the abdomen and pelvis is noted with colitis. ASSESSMENT AND PLAN: This is a 22-year-old homosexual man, who has a receptive rectal sex in [place] unprotected, presents with abdominal cramping, abdominal pain and rectal pain with leukocytosis. Proctitis and colitis. Must rule out herpes, erysipelas versus gonorrhea versus Chlamydia. I would noninfectious causes like an inflammatory bowel disease. We will start the patient on IV acyclovir, IV ceftriaxone and doxycycline and order an human immunodeficiency virus test, both PCR and a rapid fourth generation test. Stool cultures and RPR and FTA and Chlamydia and gonococcal workup. We will make further recommendations upon clinical response and results. Also order a urinalysis, a urine culture. Kobe Riddle MD
[2018-03-18] MEDS: Acyclovir 500 MG in Sodium Chloride 0.9% 100 ML IV SCH ×2 (14:37→22:50)
[2018-03-18] MEDS: cefTRIAXone 1 gm 1 GM/100 ML BAG IVPB SCH (14:39)
[2018-03-18 16:25] LABS: HEPATITIS B SURFACE AG Negative (NEGATIVE)
[2018-03-18 16:33] LABS: HEPATITIS B CORE AB NEGATIVE (NEGATIVE)
[2018-03-18 16:42] LABS: HEPATITIS C ANTIBODY NEGATIVE (NEGATIVE)
--- NOTE | 2018-03-18 17:13 | CP.PCM.HP ---
<Ke Ang - Last Filed: 03/18/18 17:14> History of Present Illness - History of Present Illness History of Present Illness: Medicine H&P: Dr. Aguero Chief Complaint: Rectal Pain HPI: 22 year old male with past medical history of hemorrhoids presents with one month duration of rectal pain that is getting incrementally worse. Patient states that he came to the emergency room when the pain was unbearable; he states that the pain is similar to the pain he gets from hemorrhoids, but more severe. Patient reports blood and mucous in his stool, the blood is not new but the mucous is. Patient went to urgent care last week where he was given miralax and hydrocortisone cream, but his symptoms have since gotten worse. Patient denies fevers and chills and denies any recent illness. Patient does not associate the bloody stools with any food changes. Review of Systems: 12 point ROS obtained and negative except as per HPI Surgical History: Patient denies Medical History: Patient denies Allergies: Peanut, Tree nut Social History: Smokes cigarettes, drinks alcohol; denies illicits Home Meds: Patient denies prescription medications Family: Patient denies PMD: Dr. Andrew Groves Present on Admission - Present on Admission Any Indicators Present on Admission: No Past Patient History - Past Social History Smoking Status: Light Smoker < 10 Cigarettes Daily - CARDIAC Hx Cardiac Disorders: No - PULMONARY Hx Respiratory Disorders: Yes Other/Comment: Smoker - NEUROLOGICAL Hx Neurological Disorder: No - HEENT Hx HEENT Problems: No - RENAL Hx Chronic Kidney Disease: No - ENDOCRINE/METABOLIC Hx Endocrine Disorders: No - HEMATOLOGICAL/ONCOLOGICAL Hx Blood Disorders: No - INTEGUMENTARY Hx Dermatological Problems: No - MUSCULOSKELETAL/RHEUMATOLOGICAL Hx Musculoskeletal Disorders: No Hx Falls: No - GASTROINTESTINAL Hx Gastrointestinal Disorders: No - GENITOURINARY/GYNECOLOGICAL Hx Genitourinary Disorders: No - PSYCHIATRIC Hx Depression: No Hx Emotional Abuse: No Hx Physical Abuse: No Hx Substance Use: No - SURGICAL HISTORY Hx Surgeries: No - ANESTHESIA Hx Anesthesia: No Meds Allergies/Adverse Reactions: Allergies Allergy/AdvReac Type Severity Reaction Status Date / Time peanut Allergy RASH Verified 03/17/18 20:07 tree nut Allergy RASH Verified 03/17/18 20:07 Physical Exam - Constitutional Appears: Well - Head Exam Head Exam: ATRAUMATIC, NORMAL INSPECTION, NORMOCEPHALIC - Eye Exam Eye Exam: EOMI, Normal appearance, PERRL Pupil Exam: NORMAL ACCOMODATION, PERRL - ENT Exam ENT Exam: Mucous Membranes Moist, Normal Exam - Neck Exam Neck exam: Positive for: Normal Inspection - Respiratory Exam Respiratory Exam: Clear to Auscultation Bilateral, NORMAL BREATHING PATTERN - Cardiovascular Exam Cardiovascular Exam: REGULAR RHYTHM - GI/Abdominal Exam GI & Abdominal Exam: Normal Bowel Sounds, Soft. absent: Tenderness - Rectal Exam Rectal Exam: Hemorrhoids - Extremities Exam Extremities exam: Positive for: normal inspection - Back Exam Back exam: NORMAL INSPECTION - Neurological Exam Neurological exam: Alert, CN II-XII Intact, Normal Gait, Oriented x3, Reflexes Normal - Psychiatric Exam Psychiatric exam: Normal Affect, Normal Mood - Skin Skin Exam: Dry, Intact, Normal Color, Warm Results - Vital Signs Recent Vital Signs: Last Vital Signs Temp 98.1 F 03/18/18 14:00 Pulse 55 L 03/18/18 14:00 Resp 18 03/18/18 14:00 BP 103/58 L 03/18/18 14:00 Pulse Ox 99 03/18/18 14:00 - Labs Result Diagrams: 03/18/18 07:00 03/18/18 07:00 Labs: Laboratory Results - last 24 hr 03/18/18 03/18/18 03/18/18 07:00 07:00 07:00 WBC 15.0 H RBC 4.90 Hgb 14.0 Hct 40.8 L MCV 83.3 MCH 28.6 MCHC 34.3 RDW 12.9 Plt Count 341 MPV 8.7 Gran % 62.2 Lymph % (Auto) 26.0 [place] % (Auto) 8.4 H Eos % (Auto) 3.2 Baso % (Auto) 0.2 Gran # 9.36 H Lymph # (Auto) 3.9 H [place] # (Auto) 1.3 H Eos # (Auto) 0.5 Baso # (Auto) 0.03 Sodium 137 Potassium 3.9 Chloride 101 Carbon Dioxide 29 Anion Gap 11 BUN 10 Creatinine 1.0 Est GFR ( Amer) > 60 Est GFR (Non-Af Amer) > 60 Random Glucose 96 Lactic Acid 0.7 Calcium 9.1 Phosphorus 3.6 Magnesium 2.0 Total Bilirubin 0.8 AST 24 ALT 31 Alkaline Phosphatase 62 Total Protein 6.9 Albumin 4.0 Globulin 2.9 Albumin/Globulin Ratio 1.4 Hep Bs Antigen Hep B Core IgM Ab Hepatitis C Antibody 03/18/18 08:00 WBC RBC Hgb Hct MCV MCH MCHC RDW Plt Count MPV Gran % Lymph % (Auto) [place] % (Auto) Eos % (Auto) Baso % (Auto) Gran # Lymph # (Auto) [place] # (Auto) Eos # (Auto) Baso # (Auto) Sodium Potassium Chloride Carbon Dioxide Anion Gap BUN Creatinine Est GFR ( Amer) Est GFR (Non-Af Amer) Random Glucose Lactic Acid Calcium Phosphorus Magnesium Total Bilirubin AST ALT Alkaline Phosphatase Total Protein Albumin Globulin Albumin/Globulin Ratio Hep Bs Antigen Negative Hep B Core IgM Ab Negative Hepatitis C Antibody Negative Assessment & Plan - Assessment and Plan (Free Text) Assessment: 22 year old male with past medical history of hemorrhoids is presenting with rectal pain and hemorrhoids. CT abdomen pelvis shows distal colitis. Patient had an elevated white count on admission but shows no other signs of infection. Lactic acid is negative and procalcitonin negative. Patient denies any recent fevers and chills or any recent illness. One dose of Flagyl and Levaquin each given in ED Plan: Hematochezia with Rectal Pain, likely 2/2 external hemorrhoids - Surgery on consult: Dr. Carballo Keep patient NPO, Sitz bath, Pain medication as needed, recommend GI consult - GI on consult: Dr. Looney Appreciate recommendations - Infectious disease on consult: Dr. Riddle Appreciate recommendations - Continue Zosyn - NaCl at 125 mls/hr - Stool culture, blood cultures pending Leukocytosis, likely 2/2 Steroid Use Outpatient - Monitor for now - ID is on consult, patient is on Zosyn for now History of Hemorrhoids - As above Tobacco Abuse - Cessation advised GI/DVT Prophylaxis - Protonix/SCD <Jose Miguel Aguero U - Last Filed: 03/19/18 21:31> Results - Vital Signs Recent Vital Signs: Last Vital Signs Temp 98.5 F 03/19/18 14:00 Pulse 69 03/19/18 14:00 Resp 18 03/19/18 14:00 BP 122/63 03/19/18 14:00 Pulse Ox 100 03/19/18 14:00 - Labs Result Diagrams: 03/19/18 06:00 03/19/18 07:00 Labs: Laboratory Results - last 24 hr 04/17/18 04/17/18 04/17/18 08:00 08:00 11:00 WBC RBC Hgb Hct MCV MCH MCHC RDW Plt Count MPV Gran % Lymph % (Auto) [place] % (Auto) Eos % (Auto) Baso % (Auto) Gran # Lymph # (Auto) [place] # (Auto) Eos # (Auto) Baso # (Auto) Sodium Potassium Chloride Carbon Dioxide Anion Gap BUN Creatinine Est GFR ( Amer) Est GFR (Non-Af Amer) Random Glucose Calcium Phosphorus Magnesium Total Bilirubin AST ALT Alkaline Phosphatase Total Protein Albumin Globulin Albumin/Globulin Ratio Urine Color Urine Appearance Urine pH Ur Specific [place] Urine Protein Urine Glucose (UA) Urine Ketones Urine Blood Urine Nitrate Urine Bilirubin Urine Urobilinogen Ur Leukocyte Esterase Urine Opiates Screen Urine Methadone Screen Ur Barbiturates Screen Ur Phencyclidine Scrn Ur Amphetamines Screen U Benzodiazepines Scrn U Oth Cocaine Metabols U Cannabinoids Screen RPR T.pallidum Ab (FTA-ABS) Nonreactive HIV-1 RNA Qnt (RT-PCR) <1.30 not detected HIV 1&2 Ag/Ab, 4th Gen Nonreactive 03/19/18 03/19/18 03/19/18 06:00 07:00 07:00 WBC 12.1 H RBC 4.87 Hgb 13.9 L Hct 40.6 L MCV 83.4 MCH 28.5 MCHC 34.2 RDW 12.6 Plt Count 355 MPV 8.9 Gran % 64.2 Lymph % (Auto) 23.5 [place] % (Auto) 9.4 H Eos % (Auto) 2.7 Baso % (Auto) 0.2 Gran # 7.75 H Lymph # (Auto) 2.8 [place] # (Auto) 1.1 H Eos # (Auto) 0.3 Baso # (Auto) 0.02 Sodium 137 Potassium 3.9 Chloride 103 Carbon Dioxide 24 Anion Gap 14 BUN 10 Creatinine 0.9 Est GFR ( Amer) > 60 Est GFR (Non-Af Amer) > 60 Random Glucose 72 Calcium 8.8 Phosphorus 3.2 Magnesium 2.0 Total Bilirubin 0.5 AST 27 ALT 27 Alkaline Phosphatase 71 Total Protein 6.9 Albumin 4.0 Globulin 2.9 Albumin/Globulin Ratio 1.4 Urine Color Urine Appearance Urine pH Ur Specific [place] Urine Protein Urine Glucose (UA) Urine Ketones Urine Blood Urine Nitrate Urine Bilirubin Urine Urobilinogen Ur Leukocyte Esterase Urine Opiates Screen Urine Methadone Screen Ur Barbiturates Screen Ur Phencyclidine Scrn Ur Amphetamines Screen U Benzodiazepines Scrn U Oth Cocaine Metabols U Cannabinoids Screen RPR Nonreactive T.pallidum Ab (FTA-ABS) HIV-1 RNA Qnt (RT-PCR) HIV 1&2 Ag/Ab, 4th Gen 03/19/18 03/19/18 10:50 10:50 WBC RBC Hgb Hct MCV MCH MCHC RDW Plt Count MPV Gran % Lymph % (Auto) [place] % (Auto) Eos % (Auto) Baso % (Auto) Gran # Lymph # (Auto) [place] # (Auto) Eos # (Auto) Baso # (Auto) Sodium Potassium Chloride Carbon Dioxide Anion Gap BUN Creatinine Est GFR ( Amer) Est GFR (Non-Af Amer) Random Glucose Calcium Phosphorus Magnesium Total Bilirubin AST ALT Alkaline Phosphatase Total Protein Albumin Globulin Albumin/Globulin Ratio Urine Color Yellow Urine Appearance Clear Urine pH 6.0 Ur Specific [place] >= 1.030 Urine Protein Negative Urine Glucose (UA) Negative Urine Ketones >=80 Urine Blood Negative Urine Nitrate Negative Urine Bilirubin Small H Urine Urobilinogen 0.2 Ur Leukocyte Esterase Negative Urine Opiates Screen Negative Urine Methadone Screen Negative Ur Barbiturates Screen Negative Ur Phencyclidine Scrn Negative Ur Amphetamines Screen Positive H U Benzodiazepines Scrn Negative U Oth Cocaine Metabols Positive H U Cannabinoids Screen Positive H RPR T.pallidum Ab (FTA-ABS) HIV-1 RNA Qnt (RT-PCR) HIV 1&2 Ag/Ab, 4th Gen Assessment & Plan - Assessment and Plan (Free Text) Assessment: ASSESMENT & PLAN; 1. Abdominal pain with intermittent rectal bleeding for last 1 month. 2. Small hiatal hernia. 3. Physiologically distended gallbladder. 4. Mild splenomegaly. 5. Mild rectal and sigmoid colon wall thickening suggestive of localized colitis with asymmetrical wall thickening of the rectum, left more than the right, with possible small left-sided perirectal abscess adjacent to or within the left aspect of the rectal wall. 6. Perirectal lymphadenopathy. 7. Localized colitis of the sigmoid colon and rectum with asymmetric wall thickening of the left side of the rectum with suggestion of small left perirectal abscess. 8. Transient hypotension. 9. Leukocytosis. 10. Questionable rectal bleeding with fecal occult blood positive. 11. History of hemorrhoid. 12. Questionable rectal bleeding. 13. Lower abdominal pain with rectal pain. 14. Nicotine dependence. 15. Proctitis and colitis. 16. Active homosexuality with receptive anorectal sex.
--- NOTE | 2018-03-18 17:19 | CP.PCM.PN ---
Subjective - Date & Time of Evaluation Date of Evaluation: 03/18/18 Time of Evaluation: 06:00 - Subjective Subjective: Medicine progress note: Dr. Aguero Patient seen and examined at bedside. No acute events overnight. Patient states he still cannot find a comfortable position to lay in because of the rectal pain. Spoke to mother and grandmother at bedside and provided education on Sitz bath and high fiber diet. Objective - Vital Signs/Intake and Output Vital Signs (last 24 hours): Temp Pulse Resp BP Pulse Ox 98.1 F 55 L 18 103/58 L 99 03/18/18 14:00 03/18/18 14:00 03/18/18 14:00 03/18/18 14:00 03/18/18 14:00 Intake and Output: 03/18/18 03/18/18 06:59 18:59 Intake Total 0 Balance 0 - Medications Medications: Current Medications Doxycycline Hyclate (Doryx) 100 mg PO Q12 [facility] PRN Reason: Protocol Stop: 03/27/18 22:01 Sodium Chloride (Sodium Chloride 0.9%) 1,000 mls @ 125 mls/hr IV .Q8H [facility] Last Admin: 03/18/18 14:37 Dose: 125 mls/hr Ceftriaxone Sodium (Rocephin 1 Gram Ivpb) 1 gm in 100 mls @ 100 mls/hr IVPB DAILY [facility] PRN Reason: Protocol Stop: 03/27/18 12:34 Last Admin: 03/18/18 14:39 Dose: 100 mls/hr Acyclovir 500 mg/ Sodium (Chloride) 100 mls @ 100 mls/hr IV Q8 [facility] PRN Reason: Protocol Stop: 03/28/18 14:01 Last Admin: 03/18/18 14:37 Dose: 100 mls/hr Magnesium Citrate (Citrate Of Mag) 300 ml PO ONCE ONE Stop: 03/18/18 18:01 Pantoprazole Sodium (Protonix Ec Tab) 40 mg PO 0600 [facility] - Labs Labs: 03/18/18 07:00 03/18/18 07:00 PT 11.7 SECONDS (9.4-12.5) 03/17/18 20:19 INR 1.03 (0.93-1.08) 03/17/18 20:19 - Constitutional Appears: Well - Head Exam Head Exam: ATRAUMATIC, NORMAL INSPECTION, NORMOCEPHALIC - Eye Exam Eye Exam: EOMI, Normal appearance, PERRL Pupil Exam: NORMAL ACCOMODATION, PERRL - ENT Exam ENT Exam: Mucous Membranes Moist, Normal Exam - Neck Exam Neck Exam: Full ROM, Normal Inspection. absent: Lymphadenopathy - Respiratory Exam Respiratory Exam: Clear to Ausculation Bilateral, NORMAL BREATHING PATTERN - Cardiovascular Exam Cardiovascular Exam: REGULAR RHYTHM, +S1, +S2. absent: Murmur - GI/Abdominal Exam GI & Abdominal Exam: Soft, Normal Bowel Sounds. absent: Tenderness - Extremities Exam Extremities Exam: Full ROM, Normal Capillary Refill, Normal Inspection. absent : Joint Swelling, Pedal Edema - Back Exam Back Exam: NORMAL INSPECTION - Neurological Exam Neurological Exam: Alert, Awake, CN II-XII Intact, Normal Gait, Oriented x3 - Psychiatric Exam Psychiatric exam: Normal Affect, Normal Mood - Skin Skin Exam: Dry, Intact, Normal Color, Warm Assessment and Plan - Assessment and Plan (Free Text) Assessment: 22 year old male with past medical history of hemorrhoids is presenting with rectal pain and hemorrhoids. CT abdomen pelvis shows distal colitis. Patient had an elevated white count on admission but shows no other signs of infection. Lactic acid is negative and procalcitonin negative. Patient denies any recent fevers and chills or any recent illness. One dose of Flagyl and Levaquin each given in ED Plan: Hematochezia with Rectal Pain, likely 2/2 external hemorrhoids - Surgery on consult: Dr. Carballo Keep patient NPO, Sitz bath, Pain medication as needed, recommend GI consult - GI on consult: Dr. Looney Appreciate recommendations - Infectious disease on consult: Dr. Riddle Appreciate recommendations - Continue Zosyn - NaCl at 125 mls/hr - Stool culture, blood cultures pending Leukocytosis, likely 2/2 Steroid Use Outpatient - Monitor for now - ID is on consult, patient is on Zosyn for now History of Hemorrhoids - As above Tobacco Abuse - Cessation advised GI/DVT Prophylaxis - Protonix/SCD
[2018-03-18 17:57] LABS: HEPATITIS A IGM NEGATIVE (NEGATIVE)
[2018-03-18] MEDS ORDERED: Magnesium Citrate Oral SOL (300 ml) PO ONE (18:00)
[2018-03-19] MEDS: Pantoprazole 40 mg EC Tab PO SCH (06:23)
[2018-03-19] MEDS: Acyclovir 500 MG in Sodium Chloride 0.9% 100 ML IV SCH ×3 (06:23→21:53)
[2018-03-19 08:01] LABS: ALB/GLOB RATIO 1.4 (1.1-1.8); ALT/SGPT 27 U/L (7-56); AST/SGOT 27 U/L (17-59); BLOOD UREA NITROGEN 10 mg/dL (7-21); CALCIUM 8.8 mg/dL (8.4-10.5); GFR AFRICAN-AMERICAN > 60; GFR NON-AFRICAN AMERICAN > 60
--- NOTE | 2018-03-19 08:08 | CON ---
DATE: 03/18/2018 GASTROENTEROLOGY CONSULTATION REQUESTING PHYSICIAN: Dr. Andrade. REASON FOR CONSULT: I have been asked to see this 22-year-old male, who comes to the hospital with a 5-day history of rectal pain, intermittent rectal bleeding and passage of mucus. The patient has had problems with hemorrhoids in the past. The patient went to an Urgent Care Center last week where he was given hydrocortisone cream, but the patient did not have any relief of rectal pain. The patient denies any fevers or chills. He does admit to anal intercourse. Routine blood work in the emergency room showed elevated white blood cell count of 15,000. CT scan of the abdomen and pelvis revealed a small fluid collection in the perirectal region. The patient has had intermittent rectal bleeding with mucus in his stool for the last several weeks. PAST MEDICAL HISTORY: Just notable for hemorrhoids. SOCIAL HISTORY: He smokes over half a pack of cigarettes per day. He denies alcohol use. He does admit to anal intercourse. FAMILY HISTORY: Noncontributory. REVIEW OF SYSTEMS: Fourteen-point review of systems is notable for rectal pain, rectal bleeding and mucoid bowel movements. PHYSICAL EXAMINATION: GENERAL: Well-developed male, lying in bed, in no acute distress. VITAL SIGNS: Reveal temperature of 98.3, blood pressure of 98/57, heart rate of 70. HEENT: Reveal sclerae to be white. Conjunctivae pink. NECK: Supple. CHEST: Reveal lungs to be clear. HEART: Exam reveals regular rate and rhythm. ABDOMEN: Soft, nontender. No mass. EXTREMITIES: Show no edema. RECTAL: Shows the presence of a tender, indurated nodule in the posterior right perianal region. There is no fluctuant areas around the anus. There is no purulent discharge around the anus. There is some lateral hemorrhoids with scant amount of blood in the rectal vault. LABORATORY DATA: Reveals white blood cell count of 15, down from 16.6 on admission to the hospital; hemoglobin 14. Chemistries reveal normal electrolytes. Again, CT scan of the abdomen and pelvis revealed a small fluid collection in the left side of the rectal wall with nonspecific thickening of the sigmoid colon and rectum. IMPRESSION: A 22-year-old male with 5 days of increasing rectal pain, bleeding, mucus with nonspecific thickening of the sigmoid colon and rectum on CAT scan with a possible perirectal abscess. He does have a tender, raised nodule in the perianal area without obvious perianal discharge. One must rule out a perirectal abscess versus an acute proctosigmoiditis RECOMMENDATIONS: 1. I will request an MRI of the pelvis with IV contrast. 2. I will schedule the patient for flexible sigmoidoscopy for the morning. Andrew Looney MD
[2018-03-19 08:52] LABS: BASO # 0.02 K/mm3 (0.0-2.0); BASO % 0.2 % (0.0-3.0); EOS # 0.3 (0.0-0.7); EOS % 2.7 % (1.5-5.0); GRAN # 7.75 (1.4-6.5); GRAN % 64.2 % (50.0-68.0); HEMOGLOBIN 13.9 g/dL (14.0-18.0); LYMPH # 2.8 (1.2-3.4); LYMPH % 23.5 % (22.0-35.0); MEAN CELL VOLUME 83.4 fl (80.0-105.0); MEAN CORPUSCULAR HEMOGLOBIN 28.5 pg (25.0-35.0); MEAN CORPUSCULAR HGB CONC 34.2 g/dl (31.0-37.0); MEAN PLATELET VOLUME 8.9 fl (7.0-11.0); MONO # 1.1 (0.1-0.6); MONO % 9.4 % (1.0-6.0); RBC 4.87 10^6/uL (3.5-6.1); RED CELL DISTRIBUTION WIDTH 12.6 % (11.5-14.5); WHITE BLOOD COUNT 12.1 10^3/ul (4.5-11.0)
[2018-03-19] MEDS ORDERED: Sodium Chloride 0.9% 1,000 ML IV SCH (09:00)
[2018-03-19] MEDS ORDERED: Propofol 10 mg/ml Inj (20 ML) ONE ×2 (09:08→09:12)
--- NOTE | 2018-03-19 10:49 | CP.PCM.PN ---
Subjective - Date & Time of Evaluation Date of Evaluation: 03/19/18 Time of Evaluation: 10:46 - Subjective Subjective: Surgery Progress Note: Patient seen and assessed at bedside. No acute events overnight. Denies fevers, chills, abdominal pain, N/V/D/C, or changes in urine output. Objective - Vital Signs/Intake and Output Vital Signs (last 24 hours): Temp Pulse Resp BP Pulse Ox 98.7 F 74 16 103/53 L 98 03/19/18 09:52 03/19/18 09:52 03/19/18 09:52 03/19/18 09:52 03/19/18 09:52 Intake and Output: 03/19/18 03/19/18 06:59 18:59 Intake Total 120 75 Output Total 0 Balance 120 75 - Medications Medications: Current Medications Doxycycline Hyclate (Doryx) 100 mg PO Q12 [facility] PRN Reason: Protocol Stop: 03/27/18 22:01 Last Admin: 03/18/18 22:51 Dose: 100 mg Sodium Chloride (Sodium Chloride 0.9%) 1,000 mls @ 125 mls/hr IV .Q8H [facility] Last Admin: 03/18/18 14:37 Dose: 125 mls/hr Ceftriaxone Sodium (Rocephin 1 Gram Ivpb) 1 gm in 100 mls @ 100 mls/hr IVPB DAILY [facility] PRN Reason: Protocol Stop: 03/27/18 12:34 Last Admin: 03/18/18 14:39 Dose: 100 mls/hr Acyclovir 500 mg/ Sodium (Chloride) 100 mls @ 100 mls/hr IV Q8 [facility] PRN Reason: Protocol Stop: 03/28/18 14:01 Last Admin: 03/19/18 06:23 Dose: 100 mls/hr Sodium Chloride (Sodium Chloride 0.9%) 1,000 mls @ 75 mls/hr IV .[id number] [facility] Stop: 03/19/18 11:01 Pantoprazole Sodium (Protonix Ec Tab) 40 mg PO 0600 [facility] Last Admin: 03/19/18 06:23 Dose: 40 mg - Labs Labs: 03/19/18 06:00 03/19/18 07:00 PT 11.7 SECONDS (9.4-12.5) 03/17/18 20:19 INR 1.03 (0.93-1.08) 03/17/18 20:19 - Constitutional Appears: Non-toxic, No Acute Distress - Head Exam Head Exam: ATRAUMATIC, NORMOCEPHALIC - Eye Exam Eye Exam: EOMI, Normal appearance - Neck Exam Neck Exam: Full ROM - Respiratory Exam Respiratory Exam: NORMAL BREATHING PATTERN. absent: Accessory Muscle Use, Respiratory Distress - GI/Abdominal Exam GI & Abdominal Exam: Soft, Normal Bowel Sounds. absent: Distended, Firm, Guarding, Rigid, Tenderness, Rebound - Extremities Exam Extremities Exam: Full ROM - Neurological Exam Neurological Exam: Alert, Awake, Oriented x3 - Psychiatric Exam Psychiatric exam: Normal Affect, Normal Mood - Skin Skin Exam: Dry, Intact, Normal Color, Warm Assessment and Plan - Assessment and Plan (Free Text) Assessment: 22 year old male who presented with rectal pain and hematochezia with mucus. Likely etiologies include fistula, colitis and/or rectal abscess. Patient to have flex sig done with GI today. Plan: -Flex Sig with GI; Will follow up these findings as well as MRI Pelvis w/ contrast -Continue antiobiotic therapy -Continue sitz baths -Continue IVF until adequate PO intake -Discussed with attending, Dr. Haris Thompson PGY1
[2018-03-19 10:59] LABS: URINE BILIRUBIN SMALL (NEGATIVE); URINE BLOOD NEGATIVE (NEGATIVE); URINE GLUCOSE (UA) NEGATIVE (NEGATIVE); URINE LEUKOCYTE ESTERASE NEGATIVE Leu/uL (NEGATIVE); URINE PROTEIN NEGATIVE mg/dL (<30 mg/dL); URINE UROBILINOGEN 0.2 E.U./dL (<1 E.U./dL)
[2018-03-19 11:14] LABS: URINE APPEARANCE CLEAR (CLEAR); URINE COLOR YELLOW (YELLOW)
[2018-03-19] MEDS: cefTRIAXone 1 gm 1 GM/100 ML BAG IVPB SCH (11:14)
[2018-03-19 11:24] LABS: OPIATES, UR NEGATIVE (NEGATIVE)
[2018-03-19 11:30] LABS: BARBITURATES, UR NEGATIVE (NEGATIVE); BENZODIAZEPINES, UR NEGATIVE (NEGATIVE); PHENCYCLIDINE, UR NEGATIVE (NEGATIVE)
--- NOTE | 2018-03-19 12:37 | CP.PCM.PN ---
Subjective - Date & Time of Evaluation Date of Evaluation: 03/19/18 Time of Evaluation: 12:21 - Subjective Subjective: Medicine progress note: Dr. Aguero Patient seen and examined at bedside. Patient states he is still having rectal discomfort but feels better. He does state that he would like to know what is going on with him. No other complaints right now. Objective - Vital Signs/Intake and Output Vital Signs (last 24 hours): Temp Pulse Resp BP Pulse Ox 98.7 F 74 16 103/53 L 98 03/19/18 09:52 03/19/18 09:52 03/19/18 09:52 03/19/18 09:52 03/19/18 09:52 Intake and Output: 03/19/18 03/19/18 06:59 18:59 Intake Total 120 75 Output Total 0 Balance 120 75 - Medications Medications: Current Medications Doxycycline Hyclate (Doryx) 100 mg PO Q12 [facility] PRN Reason: Protocol Stop: 03/27/18 22:01 Last Admin: 03/19/18 11:14 Dose: 100 mg Sodium Chloride (Sodium Chloride 0.9%) 1,000 mls @ 125 mls/hr IV .Q8H [facility] Last Admin: 03/18/18 14:37 Dose: 125 mls/hr Ceftriaxone Sodium (Rocephin 1 Gram Ivpb) 1 gm in 100 mls @ 100 mls/hr IVPB DAILY [facility] PRN Reason: Protocol Stop: 03/27/18 12:34 Last Admin: 03/19/18 11:14 Dose: 100 mls/hr Acyclovir 500 mg/ Sodium (Chloride) 100 mls @ 100 mls/hr IV Q8 [facility] PRN Reason: Protocol Stop: 03/28/18 14:01 Last Admin: 03/19/18 06:23 Dose: 100 mls/hr Pantoprazole Sodium (Protonix Ec Tab) 40 mg PO 0600 [facility] Last Admin: 03/19/18 06:23 Dose: 40 mg - Labs Labs: 03/19/18 06:00 03/19/18 07:00 PT 11.7 SECONDS (9.4-12.5) 03/17/18 20:19 INR 1.03 (0.93-1.08) 03/17/18 20:19 - Constitutional Appears: Well - Head Exam Head Exam: ATRAUMATIC, NORMAL INSPECTION, NORMOCEPHALIC - Eye Exam Eye Exam: EOMI, Normal appearance, PERRL Pupil Exam: NORMAL ACCOMODATION, PERRL - ENT Exam ENT Exam: Mucous Membranes Moist, Normal Exam - Neck Exam Neck Exam: Full ROM, Normal Inspection. absent: Lymphadenopathy - Respiratory Exam Respiratory Exam: Clear to Ausculation Bilateral, NORMAL BREATHING PATTERN - Cardiovascular Exam Cardiovascular Exam: REGULAR RHYTHM, +S1, +S2. absent: Murmur - GI/Abdominal Exam GI & Abdominal Exam: Soft, Normal Bowel Sounds. absent: Tenderness - Rectal Exam Rectal Exam: Hemorrhoids - Extremities Exam Extremities Exam: Full ROM, Normal Capillary Refill, Normal Inspection. absent : Joint Swelling, Pedal Edema - Back Exam Back Exam: NORMAL INSPECTION - Neurological Exam Neurological Exam: Alert, Awake, CN II-XII Intact, Normal Gait, Oriented x3 - Psychiatric Exam Psychiatric exam: Normal Affect, Normal Mood - Skin Skin Exam: Dry, Intact, Normal Color, Warm Assessment and Plan - Assessment and Plan (Free Text) Assessment: 22 year old male with past medical history of hemorrhoids is presenting with rectal pain and hemorrhoids. CT abdomen pelvis shows distal colitis. Patient had an elevated white count on admission but shows no other signs of infection. Lactic acid is negative and procalcitonin negative. Patient denies any recent fevers and chills or any recent illness. One dose of Flagyl and Levaquin each given in ED, was then getting Zosyn. Patient recently had an unprotected receptive anal sexual encounter in [place] and is engaging in unsafe practices. As such, infectious etiologies must be ruled out - Hepatitis and HIV are negative. Patient engaging in other risky behaviors - amphetamines , cocaine, and marijuana positive on UDS. Plan: Hematochezia with Rectal Pain, likely 2/2 external hemorrhoids - Surgery on consult: Dr. Carballo Keep patient NPO, Sitz bath, Pain medication as needed, recommend GI consult - GI on consult: Dr. Aure Goel performed today Patient changed to regular diet - NaCl at 125 mls/hr - Stool culture, blood cultures pending Leukocytosis, likely 2/2 Steroid Use Outpatient VS Colitis VS Abscess - ID is on consult: Dr. Riddle Must rule out Herpes, Gonorrhea, Chlamydia, Syphillis, Hepatitis, HIV - Rocephin, Doxy, Acyclovir History of Hemorrhoids - As above Tobacco Abuse - Cessation advised Polysubstance Abuse - Cessation advised GI/DVT Prophylaxis - Protonix/SCD
--- NOTE | 2018-03-19 13:16 | PN ---
DATE: 03/18/2018 LOCATION: Patient was seen and examined in room 573, bed 3 with medical records library professor. SUBJECTIVE: The patient was seen lying in the bed, comfortable. Overnight nurse's notes were reviewed. The patient's history was reviewed in detail. The patient came to the emergency room yesterday but the patient complained of lower abdominal pain and intermittent rectal bleeding for more than a month. PHYSICAL EXAMINATION: VITAL SIGNS: T-max 98.2 to 98.3; pulse 70, 69, 86, 55; blood pressure 120/58, 115/82, 98/57, 103/58, respiration 18, O2 sat 99%. HEENT: Head: Normocephalic, atraumatic. Pinkish conjunctivae. Dry oral mucosa. NECK: No neck rigidity. CHEST: Symmetrical. LUNGS: Shows no rales, crackles or wheezing. CARDIOVASCULAR: S1, S2, regular rhythm. ABDOMEN: Soft. Questionable mild Suprapubic left lower quadrant deep tenderness. No rebound tenderness. No costovertebral angle tenderness. No guarding. No rigidity. No epigastric periumbilical tenderness noted. GENITALIA: Male. RECTAL: Guaiac stool occult blood positive. EXTREMITIES: No pitting, no numbness, no calf tenderness, no Homans sign. MUSCULOSKELETAL: Shows a body mass index of 32. NEUROLOGIC: The patient is alert, awake, oriented x3. Cranial nerves II-XII limited. Gait examination is not tested. VASCULAR: Palpable pulses. Plantars are downward. DTRs are 2+. DIAGNOSTICS: March 18, WBC 15, hemoglobin and hematocrit 14 and 41, platelets 341. Sodium 137, potassium 3.9, chloride 101, CO2 of 29, anion gap 11, BUN 10, creatinine 1.0, GFR greater than 60, glucose 96, lactic acid 0.7. LFTs are normal. Magnesium and phosphorus are normal. Procalcitonin level is less than 0.05. Stool occult blood positive. Hepatitis A, B, C serologies are negative. The patient's abdominal pelvis CT was reviewed. IMPRESSION AND PLAN: 1. Abdominal pain with intermittent rectal bleeding for last 1 month. 2. Small hiatal hernia. 3. Physiologically distended gallbladder. 4. Mild splenomegaly. 5. Mild rectal and sigmoid colon wall thickening suggestive of localized colitis with asymmetrical wall thickening of the rectum, left more than the right, with possible small left-sided perirectal abscess adjacent to or within the left aspect of the rectal wall. 6. Perirectal lymphadenopathy. 7. Localized colitis of the sigmoid colon and rectum with asymmetric wall thickening of the left side of the rectum with suggestion of small left perirectal abscess. 8. Transient hypotension. 9. Leukocytosis. 10. Questionable rectal bleeding with fecal occult blood positive. 11. History of hemorrhoid. 12. Questionable rectal bleeding. 13. Lower abdominal pain with rectal pain. 14. Nicotine dependence. 15. Proctitis and colitis. 16. Active homosexuality with receptive anorectal sex. PLAN: At this time, the patient has been ordered repeat labs. The patient was seen by Infectious Disease, Chlamydia, GC, RNA ordered. FTA antibodies ordered. HIV ordered. CBC ordered. Stool, blood, urine cultures ordered. Current consultations Surgery, Gastroenterology, Infectious Disease. RPR is ordered. The patient was given a dose of magnesium citrate x1 bottle by Dr. Looney. The patient started on doxycycline 100 mg p.o. every 12 hours. The patient received Flagyl 500 IV and Levaquin 750 IV in the emergency room. The patient is on Protonix 40 p.o. daily. The patient is started on Rocephin 1 g IV daily. The patient is on 0.9 normal saline at 125 mL an hour. The patient is started on Zovirax 500 mg IV every 8 hours. The patient has been seen by the Gastroenterology. The patient has been ordered an MRI of the pelvis with contrast. The patient is on liquid diet. The patient has been ordered sitz bath by the surgical consultant. The patient has been kept n.p.o. past midnight by Dr. Looney. The patient has been ordered out of bed, SCDs, EMILIA stockings. At present, the patient has been updated about his condition, diagnosis, treatment plan, management plan at length and all questions concerned answered. Dictated and electronically signed, not read. Jose Miguel Aguero MD
[2018-03-19] MEDS ORDERED: Gadodiamide 287 MG/ML VIAL (15ML) IV ONE (13:41)
--- NOTE | 2018-03-20 00:03 | PN ---
DATE: SUBJECTIVE: The patient is in bed, in no acute distress, nontoxic. PHYSICAL EXAMINATION: VITAL SIGNS: Temperature is 98, blood pressure is 120/60, respiratory rate of 18. HEENT: Examination of HEENT is unremarkable. NECK: Supple. LUNGS: Have decreased breath sounds. HEART: Normal S1 and S2. ABDOMEN: Soft, nontender. LABORATORY DATA: Laboratory examination reveals a white count of 4000, hemoglobin of 13, platelets of 355. Chemistries reveals a BUN of 10, creatinine of 0.9, procalcitonin is less than 0.05. Urinalysis is noted. Serology is noted. The patient's RPR is negative. FTA is negative. Hepatitis profile is negative. HIV is negative. HIV PCR is negative. Stool for occult blood is positive and white count is improved. ASSESSMENT AND PLAN: This is a 22-year-old male who is homosexual, had receptive rectal sex in [place] without protection and now presenting with pain and proctitis and colitis. Must rule out herpes versus gonorrhea and Chlamydia versus inflammatory bowel disease and currently on Rocephin, doxycycline and acyclovir. MRI of the pelvis is ordered by Dr. oLoney. The patient states that he is doing better as of this morning. Endoscopy was all done. Sigmoidoscopy with biopsy was done. We will check on the biopsy results. We will follow with you. Kobe Riddle MD
--- NOTE | 2018-03-20 02:12 | PN ---
DATE: 03/19/2018 LOCATION: Patient is seen in room 573, bed 3. SUBJECTIVE: The patient is seen lying in the bed. The patient is awake, responsive. The patient underwent flexed sigmoidoscopy this morning. The patient reports decreasing abdominal pain and no rectal bleeding. OBJECTIVE: VITAL SIGNS: T-max 98.7; pulse 81, 74, 69; blood pressure 122/63; respirations 18; O2 sat 100%. GENERAL: The patient is seen lying in the bed in room 573, bed 3. HEENT: Head examination normocephalic, atraumatic. HEENT examination shows pinkish conjunctivae. Anicteric sclerae, dry oral mucosa. NECK: No neck rigidity. CHEST: Symmetrical. LUNGS: Shows no rales, crackles or wheezing. CARDIOVASCULAR: S1, S2, regular rhythm. ABDOMEN: Soft. Positive bowel sounds. No upper and lower right and left lower quadrant tenderness noted. No suprapubic tenderness noted. No guarding. No rigidity. No rebound tenderness. GENITALIA: Male. RECTAL: Deferred. EXTREMITIES: Shows no pitting edema, no calf tenderness, no Homans' sign. NEUROLOGIC: The patient is alert, awake, and oriented x3. Cranial nerves II-XII intact. Gait examination not tested. MUSCULOSKELETAL: Body mass index of 32. Cranial nerves II-XII grossly intact. DIAGNOSTICS: On 03/19/2018; WBC 12.1, hemoglobin/hematocrit 13.9/40.6, platelet 355. Sodium 137, potassium 3.9, chloride 103, CO2 of 24, anion gap 14, BUN 10, creatinine 0.9, GFR greater than 60, glucose 72, calcium 8.8, phosphorus 3.2, magnesium 2.0. LFTs are normal. Urine drug screen which results came back is positive for amphetamine, positive for cocaine, positive for cannabinoids. The patient's RPR is nonreactive, FTA is nonreactive. Hepatitis A, B, C serologies are negative. HIV is negative. Blood cultures negative. The patient was ordered an MRI of the pelvis. The results of which are pending. The patient underwent flexed sigmoidoscopy which shows non-thrombosed external hemorrhoid, distal rectal area of nonbleeding ulcerated nodular mucosa status post biopsy. IMPRESSION AND PLAN: 1. Status post sigmoidoscopy with biopsy. 2. Probable severe infectious proctitis. 3. Status post flexible sigmoidoscopy. 4. Non-thrombosed external hemorrhoid. 5. Distal rectum continuous area of nonbleeding ulcerated nodular mucosa. 6. Hypotension. 7. Longstanding history of abdominal pain and rectal bleeding. 8. Leukocytosis. 9. Normocytic anemia. 10. Fecal occult blood positive. 11. Urine drug screen positive for amphetamines, cocaine and cannabinoids. 12. History of recreational drug use. 13. History of homosexuality and ano-receptive sexual preference. 14. Small hiatal hernia. 15. Borderline hepatomegaly. 16. Physiological gallbladder distention. 17. Mild splenomegaly. 18. Possible localized sigmoid colon and rectal colitis with thickening of short segment of the sigmoid colon and rectum with asymmetric rectal wall thickening on the left side with vague elliptical shaped area of low attenuation adjacent to or within the left lateral rectal wall, possibly small left-sided perirectal abscess. 19. Perirectal lymphadenopathy. 20. Localized colitis of the sigmoid colon and the rectum. 21. Small left rectal wall perirectal abscess with asymmetrical wall thickening of the left side of the rectum. 22. History of rectal pain and abdominal pain. 23. Proctitis and localized colitis. 24. History of unprotected ano-receptive sex with homosexuality. 25. Polysubstance abuse and dependence. 26. History of active homosexuality with anorectal receptive sex. Plan at this time, the patient was seen by Gastroenterology. The patient was seen by salesperson surgical appliances. The patient was seen by Infectious Disease, their recommendation was noted. The patient has been ordered repeat labs for the morning. The patient's Chlamydia screen is pending. Blood, stool cultures, urine cultures are pending. Current Consultations: 1. Surgery. 2. Gastroenterology. 3. Infectious Disease. Current Medications: Doxycycline 100 mg p.o. every 12 hours, Levaquin 750 IV one dose was given. The patient is on Protonix 40 daily, Rocephin 1 gm IV daily, Zovirax 500 mg IV every 8 hours. Pelvic MRI results are pending. The patient is started on regular diet by Dr. Looney. Patient has been ordered out of bed ad ramos. The patient was updated about his test results and recommendation by all the physicians involved in the care of the patient, which he acknowledged and understand. All questions concerned were answered. The patient was also advised that the patient's hospitalization and treatment recommendation is dependent on the recommendation by his Infectious Disease, Gastroenterology and Surgery, which was explained to the patient at length and all questions concerned were answered. Dictated and electronically signed, not read. Jose Miguel Aguero MD
[2018-03-20] MEDS: Acyclovir 500 MG in Sodium Chloride 0.9% 100 ML IV SCH ×2 (05:47→15:20)
--- NOTE | 2018-03-20 07:41 | CP.PCM.PN ---
Subjective - Date & Time of Evaluation Date of Evaluation: 03/20/18 Time of Evaluation: 07:35 - Subjective Subjective: Surgery Progress Note: Patient seen and assessed at bedside. No acute events overnight. Denies fevers, chills, chest pain, SOB, abdominal pain, N/V/D/C, or changes in urine output. Objective - Vital Signs/Intake and Output Vital Signs (last 24 hours): Temp Pulse Resp BP Pulse Ox 98.8 F 68 20 117/59 L 96 03/19/18 22:00 03/19/18 22:00 03/19/18 22:00 03/19/18 22:00 03/19/18 22:00 Intake and Output: 03/20/18 03/20/18 06:59 18:59 Intake Total 340 Balance 340 - Medications Medications: Current Medications Doxycycline Hyclate (Doryx) 100 mg PO Q12 KATHRINE PRN Reason: Protocol Stop: 03/27/18 22:01 Last Admin: 03/19/18 21:53 Dose: 100 mg Ceftriaxone Sodium (Rocephin 1 Gram Ivpb) 1 gm in 100 mls @ 100 mls/hr IVPB DAILY KATHRINE PRN Reason: Protocol Stop: 03/27/18 12:34 Last Admin: 03/19/18 11:14 Dose: 100 mls/hr Acyclovir 500 mg/ Sodium (Chloride) 100 mls @ 100 mls/hr IV Q8 KATHRINE PRN Reason: Protocol Stop: 03/28/18 14:01 Last Admin: 03/20/18 05:47 Dose: 100 mls/hr Pantoprazole Sodium (Protonix Ec Tab) 40 mg PO 0600 [facility] Last Admin: 03/19/18 06:23 Dose: 40 mg - Labs Labs: 03/19/18 06:00 03/19/18 07:00 PT 11.7 SECONDS (9.4-12.5) 03/17/18 20:19 INR 1.03 (0.93-1.08) 03/17/18 20:19 - Constitutional Appears: Non-toxic, No Acute Distress - Head Exam Head Exam: ATRAUMATIC, NORMOCEPHALIC - Eye Exam Eye Exam: EOMI, Normal appearance - Neck Exam Neck Exam: Full ROM - Respiratory Exam Respiratory Exam: NORMAL BREATHING PATTERN. absent: Accessory Muscle Use, Respiratory Distress - GI/Abdominal Exam GI & Abdominal Exam: Soft, Normal Bowel Sounds. absent: Distended, Firm, Guarding, Rigid, Tenderness, Rebound - Neurological Exam Neurological Exam: Alert, Awake - Psychiatric Exam Psychiatric exam: Normal Affect, Normal Mood - Skin Skin Exam: Dry, Intact, Normal Color, Warm Assessment and Plan - Assessment and Plan (Free Text) Assessment: 22 year old male who presented with rectal pain and hematochezia with mucus. Likely etiologies include fistula, colitis and/or rectal abscess. Flex Sig showed mucosal ulceration and non-thrombosed external hemorrhoids. Plan: -Will follow up MRI Pelvis w/ Contrast -Continue antiobiotic therapy -Continue sitz baths -Continue IVF until adequate PO intake -Discussed with attending, Dr. Haris Thompson PGY1
[2018-03-20 07:44] LABS: BASO # 0.02 K/mm3 (0.0-2.0); BASO % 0.2 % (0.0-3.0); EOS # 0.5 (0.0-0.7); EOS % 5.2 % (1.5-5.0); GRAN # 4.26 (1.4-6.5); GRAN % 44.9 % (50.0-68.0); HEMOGLOBIN 13.8 g/dL (14.0-18.0); LYMPH # 3.8 (1.2-3.4); LYMPH % 39.5 % (22.0-35.0); MEAN CELL VOLUME 83.2 fl (80.0-105.0); MEAN CORPUSCULAR HEMOGLOBIN 27.9 pg (25.0-35.0); MEAN CORPUSCULAR HGB CONC 33.6 g/dl (31.0-37.0); MEAN PLATELET VOLUME 8.7 fl (7.0-11.0); MONO % 10.2 % (1.0-6.0); RBC 4.94 10^6/uL (3.5-6.1); RED CELL DISTRIBUTION WIDTH 12.7 % (11.5-14.5); WHITE BLOOD COUNT 9.5 10^3/ul (4.5-11.0)
[2018-03-20 08:08] LABS: ALB/GLOB RATIO 1.3 (1.1-1.8); ALBUMIN 3.9 g/dL (3.0-4.8); ALT/SGPT 27 U/L (7-56); AST/SGOT 27 U/L (17-59); BLOOD UREA NITROGEN 8 mg/dL (7-21); CALCIUM 9.1 mg/dL (8.4-10.5); GFR AFRICAN-AMERICAN > 60; GFR NON-AFRICAN AMERICAN > 60
--- NOTE | 2018-03-20 10:29 | CP.PCM.PN ---
Subjective - Date & Time of Evaluation Date of Evaluation: 03/20/18 Time of Evaluation: 09:00 - Subjective Subjective: Medicine progress note: Dr. Aguero Patient seen and examined at bedside. No acute events overnight. Patient's rectal pain better. Objective - Vital Signs/Intake and Output Vital Signs (last 24 hours): Temp Pulse Resp BP Pulse Ox 97.9 F 52 L 20 117/59 L 97 03/20/18 06:00 03/20/18 06:00 03/20/18 06:00 03/19/18 22:00 03/20/18 06:00 Intake and Output: 03/20/18 03/20/18 06:59 18:59 Intake Total 340 Balance 340 - Medications Medications: Current Medications Doxycycline Hyclate (Doryx) 100 mg PO Q12 KATHRINE PRN Reason: Protocol Stop: 03/27/18 22:01 Last Admin: 03/19/18 21:53 Dose: 100 mg Ceftriaxone Sodium (Rocephin 1 Gram Ivpb) 1 gm in 100 mls @ 100 mls/hr IVPB DAILY KATHRINE PRN Reason: Protocol Stop: 03/27/18 12:34 Last Admin: 03/19/18 11:14 Dose: 100 mls/hr Acyclovir 500 mg/ Sodium (Chloride) 100 mls @ 100 mls/hr IV Q8 KATHRINE PRN Reason: Protocol Stop: 03/28/18 14:01 Last Admin: 03/20/18 05:47 Dose: 100 mls/hr Pantoprazole Sodium (Protonix Ec Tab) 40 mg PO 0600 [facility] Last Admin: 03/19/18 06:23 Dose: 40 mg - Labs Labs: 03/20/18 07:00 03/20/18 07:00 PT 11.7 SECONDS (9.4-12.5) 03/17/18 20:19 INR 1.03 (0.93-1.08) 03/17/18 20:19 - Constitutional Appears: Well - Head Exam Head Exam: ATRAUMATIC, NORMAL INSPECTION, NORMOCEPHALIC - Eye Exam Eye Exam: EOMI, Normal appearance, PERRL Pupil Exam: NORMAL ACCOMODATION, PERRL - ENT Exam ENT Exam: Mucous Membranes Moist, Normal Exam - Neck Exam Neck Exam: Full ROM, Normal Inspection. absent: Lymphadenopathy - Respiratory Exam Respiratory Exam: Clear to Ausculation Bilateral, NORMAL BREATHING PATTERN - Cardiovascular Exam Cardiovascular Exam: REGULAR RHYTHM, +S1, +S2. absent: Murmur - GI/Abdominal Exam GI & Abdominal Exam: Soft, Normal Bowel Sounds. absent: Tenderness - Extremities Exam Extremities Exam: Full ROM, Normal Capillary Refill, Normal Inspection. absent : Joint Swelling, Pedal Edema - Back Exam Back Exam: NORMAL INSPECTION - Neurological Exam Neurological Exam: Alert, Awake, CN II-XII Intact, Normal Gait, Oriented x3 - Psychiatric Exam Psychiatric exam: Normal Affect, Normal Mood - Skin Skin Exam: Dry, Intact, Normal Color, Warm Assessment and Plan - Assessment and Plan (Free Text) Assessment: 22 year old male with past medical history of hemorrhoids is presenting with rectal pain and hemorrhoids. CT abdomen pelvis shows distal colitis. Patient had an elevated white count on admission but shows no other signs of infection. Blood cultures negative; Lactic acid is negative and procalcitonin negative. Patient denies any recent fevers and chills or any recent illness. One dose of Flagyl and Levaquin each given in ED, was then getting Zosyn. Patient recently had an unprotected receptive anal sexual encounter in [place] and is engaging in unsafe practices. As such, infectious etiologies must be ruled out - Hepatitis, Syphillis, and HIV are negative. Patient engaging in other risky behaviors - amphetamines, cocaine, and marijuana positive on UDS. Colonoscopy was performed which showed very friable mucosa, mucosal ulceration, and non- thrombosed external hemorrhoids. Pathology results for ulcerations pending. Plan: Hematochezia with Rectal Pain, likely 2/2 external hemorrhoids - Surgery on consult: Dr. Carballo Keep patient NPO, Sitz bath, Pain medication as needed, recommend GI consult - GI on consult: Dr. Looney Colonoscopy results as per assessment, pathology pending Patient changed to regular diet - NaCl at 125 mls/hr is now discontinued - Stool culture received; blood cultures negative, pending gram stain Leukocytosis, likely 2/2 Steroid Use Outpatient VS Colitis VS Abscess - Resolved - ID is on consult: Dr. Riddle Gonorrhea, Chlamydia are pending - Rocephin, Doxy, Acyclovir History of Hemorrhoids - As above Tobacco Abuse - Cessation advised Polysubstance Abuse - Cessation advised GI/DVT Prophylaxis - Protonix/SCD Safe sex practices were discussed with patient.
--- NOTE | 2018-03-20 10:34 | PN ---
DATE: 03/20/2018 SUBJECTIVE: The patient is lying in bed. He feels better. His rectal pain is less. He denies any further rectal bleeding. MEDICATIONS: Currently include acyclovir 500 mg IV every 8 hours, doxycycline 100 mg p.o. every 12 hours, Protonix 40 mg once a day, ceftriaxone 1 g IV daily. PHYSICAL EXAMINATION: VITAL SIGNS: Reveal temperature of 97.9, blood pressure of 117/59, heart rate of 52. HEENT: Reveal sclerae to be white. Conjunctivae pale. NECK: Supple. CHEST: Reveal lungs to be clear. HEART: Reveals a regular rate and rhythm. ABDOMEN: Soft, nontender. No mass. EXTREMITIES: Show no edema. LABORATORY DATA: Reveal white blood cell count 9.5, hemoglobin 13.8. Chemistries reveal normal electrolytes. Hepatitis serology is negative. HIV serology is negative. RPR and FTA are nonreactive. IMPRESSION: Severe distal proctitis with ulceration and nodularity to the rectal mucosa with a question of perirectal abscess on CAT scan. RECOMMENDATIONS: 1. Continue IV antibiotics. 2. Await official reading of MRI of the pelvis. 3. Await biopsies from colonoscopy. Andrew Lonoey MD
[2018-03-20] MEDS: Pantoprazole 40 mg EC Tab PO SCH (10:46)
[2018-03-20] MEDS: cefTRIAXone 1 gm 1 GM/100 ML BAG IVPB SCH (10:46)
--- NOTE | 2018-03-20 10:54 | MRI ---
PROCEDURE: MRI pelvis HISTORY: pelvic abscess COMPARISON: CT abdomen/pelvis 03/17/2018 TECHNIQUE: Multi sequence, multiplanar imaging of the pelvis was performed both with and without intravenous gadolinium administration. FINDINGS: There is circumferential mural thickening of the inferior rectum. It is asymmetric. There is no discrete mass identified. There is diffuse edema of the perirectal fat. There is mild presacral edema. There are multiple perirectal lymph nodes identified. There is a left pelvic side wall lymph node measuring 11 mm. The perirectal lymph nodes measure up to 10 mm in diameter. Given the extent of edema in the perirectal fat, this most likely represents a proctitis. Cannot rule out neoplasm. Question was raised on CT examination of 03/17/2018 of possible perirectal abscess. No evidence of perirectal abscess. Following intravenous gadolinium administration, there is no abnormal enhancement appreciated. The urinary bladder is nondistended. There is no evidence of ascites. The prostate is unremarkable. The marrow signal of the visualized osseous structures is within normal limits. IMPRESSION: Asymmetric rectal wall thickening with edema of perirectal fat and with presacral edema. Perirectal nodes identified. . No focal enhancement. Likely proctitis. Cannot rule out neoplasm. Followup with proctoscopy advised following presumptive treatment.
[2018-03-20 15:53] VITALS: BP 123/61; PULSE 50; RESP 18; TEMP 98.5; O2SAT 98
--- NOTE | 2018-03-20 21:25 | PN ---
DATE: 03/20/2018 SUBJECTIVE: The patient is seen early this morning in 573, bed 3. He is doing much better. He states his symptoms are resolved. PHYSICAL EXAMINATION: VITAL SIGNS: Temperature is 98, blood pressure is 120/60, respiratory rate of 18, heart rate of 70. HEENT: Examination of HEENT is unremarkable. NECK: Supple. LUNGS: Have decreased breath sounds. HEART: Normal S1 and S2. ABDOMEN: Soft, nontender. LABORATORY DATA: Reveals a white count of 9.5, hemoglobin of 13, platelets of 352. Chemistries are noted to be within normal limits. Urinalysis is noted. Stool for occult blood is positive. Toxicology is reviewed. RPR is negative and FTA is negative. Hepatitis profile is negative and hepatitis C is negative. HIV is negative, both the fourth generation, and blood cultures are negative. ASSESSMENT AND PLAN: This is a 22-year-old male who was in [place] and had unprotected sexual encounter, who presents with both proctitis and colitis. The pathology is, no viral elements are seen and ulcer is seen and currently patient will be improved on ceftriaxone, doxycycline, acyclovir. Waiting for the Chlamydia and GC. Patient has adequately been treated for GC. Can be discharged on p.o. doxycycline and p.o. acyclovir. If GC or Chlamydia is positive, repeat [id number] in 14 days sexual education counseling is recommended. Human immunodeficiency virus counseling is recommended and the human immunodeficiency virus test is negative at this time and we will follow with you. Kobe Riddle MD DD: <03/20/2018> <16:40:20> DT: <03/20/2018> <17:26:00>
--- NOTE | 2018-03-21 06:00 | DS ---
FINAL PROGRESS NOTE AND DISCHARGE SUMMARY LOCATION: The patient was seen in room 573, bed 3. HISTORY: The patient was seen by Dr. Riddle and was cleared for discharge on p.o. antibiotic. The patient denies any abdominal pain, denies any nausea, denies any vomiting, denies any rectal bleeding. PHYSICAL EXAMINATION: VITAL SIGNS: T-max 98.8; pulse 68, 69, 52; blood pressure 123/61, 122/63, 117/59; respirations 18-20; O2 sat 98-99%. HEENT: Head examination normocephalic, atraumatic. HEENT examination shows pink conjunctivae. Anicteric sclerae. No oropharyngeal lesion. NECK: No neck rigidity. CHEST: Symmetrical. LUNGS: Shows no rales, crackles or wheezing. CARDIOVASCULAR: S1, S2, regular rhythm. ABDOMEN: Soft. Positive bowel sound. No hepatosplenomegaly noted. No guarding. No rigidity. No rebound tenderness. No costovertebral angle tenderness. No right and left upper and lower quadrant tenderness. No guarding. No rigidity. GENITALIA: Male. RECTAL: Deferred. EXTREMITIES: Shows no pitting edema, no calf tenderness, no Homans' sign. NEUROLOGIC: The patient is alert, awake, oriented x3. Cranial nerves II-XII intact. Ambulation, independent. VASCULAR: Palpable pulses. PSYCHIATRIC: Negative. DIAGNOSTICS: On 03/20/2018; WBC count is down to 9.5, hemoglobin/hematocrit 13.8/41.4, platelets 352. Sodium 140, potassium 4.3, chloride 102, CO2 of 29, anion gap 13, BUN 8, creatinine 0.9, GFR greater than 60, glucose 98, calcium 9.1, phosphorus 3.2, magnesium 2.0. LFTs are normal. Urine drug screen positive for amphetamine, positive for cocaine, positive for cannabinoids. Blood cultures negative. The patient's MRI results were noted. Pathology results were noted. The patient was seen by Dr. Riddle. FINAL IMPRESSION, PLAN AND DISCHARGE DIAGNOSES: 1. Questionable and possible infectious proctitis and colitis. 2. Status post flexed sigmoidoscopy. 3. Asymmetrical rectal wall thickening with edema of the perirectal fat and presacral edema and perirectal lymphadenopathy likely proctitis. 4. Asymmetrical inferior rectum circumferential mural thickening with diffuse edema of the perirectal fat and presacral edema with perirectal lymphadenopathy and left-sided pelvic lymphadenopathy, representing proctitis. 5. Acute rectal ulcer with inflamed granulation tissue and hyperplastic reactive gland. 6. Hypotension. 7. Leukocytosis. 8. Mild normocytic anemia. 9. Fecal occult blood positive. 10. Polysubstance abuse and recreational drug abuse with urine drug screen positive for amphetamines, cocaine and cannabinoids. 11. Homosexual behavior with ano-receptive unprotected sexual encounter. 12. Severe distal proctitis with ulceration and nodularity of the rectal mucosa. The patient was seen by Dr. Riddle. The patient was cleared for discharge on p.o. antibiotics. The patient was strictly counseled about avoidance of high-risk sexual behavior. The patient was counseled about risk of david HIV and sexually transmitted disease. The patient was advised against unprotected sex. During this hospitalization, the patient was extensively explained about the details of his test results, recommendation was explained to the patient at length and all questions concerned answered. DISCHARGE MEDICATIONS: Doxycycline 100 mg p.o. twice a day for 9 more days and acyclovir 400 mg three times a day for #42 tablets for 14 days. The patient was discharged on above medication. DISCHARGE FOLLOWUP: With Dr. Aguero within 1 week. DISCHARGE INSTRUCTIONS: The patient was advised high-risk sexual behavior. The patient was advised against unprotected sex. The patient was advised and explained that he is being a very high risk for sexually transmitted disease and high risk for HIV, hepatitis and other diseases which he acknowledged understand. Time spent in the entire discharge process more than 45 minutes. Dictated and electronically signed, not read. Jose Miguel Aguero MD
== END 2018-03-20 22:18 | disposition home or self-care (01) | DRG 395 ==
LOC: ED 18:58 → ERH 23:40 → 5RSO 03-18 01:44
PROVIDERS: ADMIT Internal Medicine; ATTEND Internal Medicine
PROC: 0DBP8ZX Excision of Rectum, Via Natural or Artificial Opening Endoscopic, Diagnostic (ICD-10-PCS; principal; 2018-03-19 11:00)
DX: K62.6 Ulcer of anus and rectum (principal); K64.4 Residual hemorrhoidal skin tags; K52.9 Noninfective gastroenteritis and colitis, unspecified; K44.9 Diaphragmatic hernia without obstruction or gangrene; F15.10 Other stimulant abuse, uncomplicated; F14.10 Cocaine abuse, uncomplicated; F12.10 Cannabis abuse, uncomplicated; F17.210 Nicotine dependence, cigarettes, uncomplicated; D64.9 Anemia, unspecified; I95.9 Hypotension, unspecified; K82.8 Other specified diseases of gallbladder; R16.2 Hepatomegaly with splenomegaly, not elsewhere classified; K62.89 Other specified diseases of anus and rectum; Z91.010 Allergy to peanuts